=== PATIENT | female | born 1995 | race Caucasian/White ===

== ENCOUNTER 2021-08-13 14:23 | Emergency (ER) | payer SELFPAY ==
--- OUTSIDE RECORDS SUMMARY | 2021-08-13 14:27 | XMS REPORT | Continuity of Care Document ---
:1995 Author Organization [facility] t Address [address] [place] [address] Care Team Providers Name Role Phone PCP, DOES NOT HAVE A Primary Care Physician Unavailable JULIO MOREAU Attending Clinician Unavailable Julio Moreau MD Attending Clinician Doctor Unassigned, Name Attending Clinician Unavailable NANCY Attending Clinician Unavailable Chandler Attending Clinician Unavailable NANCY Admitting Clinician Unavailable Chandler Admitting Clinician Unavailable Payers Payer Name Policy Type Policy Number Effective Date Expiration Date [facility] [id number] 2018 CHOICE (MEDICAID 00:00:00 [place]PLAC[place] - [place] [id number] 2012 (PPO) 00:00:00 Problems Condition Condition Condition Status Onset Resolution Last Treating Co mments Source Name Details Category Date Date Treatment Clinician Date Encounter Encounter Disease Active Uni vers for for 5-05 ity of initial initial 00:00: [place] management management 00 Me dical of of Branch nuvaring nuvaring Obesity Obesity Disease Active 2018-02 Univers (BMI (BMI 1-12 ity of 30-39.9) 30-39.9) 00:00: [place] [address] Medical Branch Allergies, Adverse Reactions, Alerts Allergy Allergy Status Severity Reaction(s) Onset Inactive Treating Comm ents Source Name Type Date Date Clinician NO KNOWN Drug Active Univers ALLERGIE Class ity of [facility] Social History Social Habit Start Date Stop Date Quantity Comments Source Exposure to 2021-06-10 2021-06-20 Not sure University of SARS-CoV-2 00:00:00 09:13:00 [place] [facility] (event) Branch Alcohol intake 2021-06-20 2021-06-20 Current drinker of Un iversity of 00:00:00 00:00:00 alcohol (finding) [facility] edical Branch History SDOH 2020-03-19 2020-03-19 2 University o f Alcohol Frequency 00:00:00 00:00:00 [facility] edical Branch History [facility] 2020-03-19 2020-03-19 1 University o f Alcohol Std 00:00:00 00:00:00 [place] [facility] Drinks Branch History [facility] 2020-03-19 2020-03-19 1 University o f Alcohol Binge 00:00:00 00:00:00 [facility] al Branch Alcohol Comment 2019-09-05 2019-09-05 occasionally Univers ity of 00:00:00 00:00:00 [facility] Tobacco use and 2018-07-08 2018-07-08 Former user Universi ty of exposure 00:00:00 00:00:00 [facility] Tobacco Comment 2018-07-08 2018-07-08 stress smoker only U niversity of 00:00:00 00:00:00 [facility] Sex Ass[birth year] At [birth year] Universit y of 00:00:00 00:00:00 [facility] Smoking Status Start Date Stop Date Source Former smoker 2018-07-08 00:00:00 2018-07-08 00:00:00 Universi of [facility] Medications Ordered Filled Start Stop Current Ordering Indication Dosage Frequency Signature Comments Components Source Medication Medication Date Date Medication? Clinician (SIG) Name Name VINCE Yes [id number] 1{each} Insert 1 Univers 0.12-0.015 5-05 Each into ity of mg/24 hr 00:00: vagina vaginal 00 once every Medica l insert month. Branch Insert vaginally and leave in place for 3 consecutiv e weeks, then remove for 1 week. VINCE Yes [id number] 1{each} Insert 1 Univers 0.12-0.015 5-05 Each into ity of mg/24 hr 00:00: vagina vaginal 00 once every Medica l insert month. Branch Insert vaginally and leave in place for 3 consecutiv e weeks, then remove for 1 week. NUVARING Yes [id number] 1{each} Insert 1 Univers 0.12-0.015 5-05 Each into ity of mg/24 hr 00:00: vagina [place] vaginal 00 once every Medica l insert month. Branch Insert vaginally and leave in place for 3 consecutiv e weeks, then remove for 1 week. NUVARING Yes [id number] 1{each} Insert 1 Univers 0.12-0.015 5-05 Each into ity of mg/24 hr 00:00: vagina [place] vaginal 00 once every Medica l insert month. Branch Insert vaginally and leave in place for 3 consecutiv e weeks, then remove for 1 week. Immunizations Ordered Immunization Filled Immunization Date Status Commen ts Source Name Name Influenza Virus 2018-12-03 Completed Universit y of Vaccine Quad .5 mL IM 00:00:00 [place] [facility] 6+ MO Branch TDAP (ADACEL) VACCINE 2018-12-03 Completed Uni versity of 00:00:00 [facility] Influenza Virus 2018-12-03 Completed Universit y of Vaccine Quad .5 mL IM 00:00:00 [place] [facility] 6+ MO Branch TDAP (ADACEL) VACCINE 2018-12-03 Completed Uni versity of 00:00:00 [facility] Influenza Virus 2018-12-03 Completed Universit y of Vaccine Quad .5 mL IM 00:00:00 [place] [facility] 6+ MO Branch TDAP (ADACEL) VACCINE 2018-12-03 Completed Uni versity of 00:00:00 [facility] Influenza Virus 2018-12-03 Completed Universit y of Vaccine Quad .5 mL IM 00:00:00 [place] [facility] 6+ MO Branch TDAP (ADACEL) VACCINE 2018-12-03 Completed Uni versity of 00:00:00 [facility] Meningococcal 2011-12-15 Completed University of Polysaccharide 00:00:00 [place] Medi sedrick (groups A, C, Y and Branc h W-135) conjugate vaccine (MCV4P) TDAP 2011-12-15 Completed University of 00:00:00 [facility] Varicella 2011-12-15 Completed University of (varivax)(chicken 00:00:00 [place] M edical pox) [place] Meningococcal 2011-12-15 Completed University of Polysaccharide 00:00:00 [place] Medi sedrick (groups A, C, Y and Branc h W-135) conjugate vaccine (MCV4P) TDAP 2011-12-15 Completed University of 00:00:00 [facility] Varicella 2011-12-15 Completed University of (varivax)(chicken 00:00:00 [place] M edical pox) Branch Meningococcal 2011-12-15 Completed University of Polysaccharide 00:00:00 [place] Medi sedrick (groups A, C, Y and Branc h W-135) conjugate vaccine (MCV4P) TDAP 2011-12-15 Completed University of 00:00:00 [facility] Varicella 2011-12-15 Completed University of (varivax)(chicken 00:00:00 [place] M edical pox) Branch Meningococcal 2011-12-15 Completed University of Polysaccharide 00:00:00 [place] Medi sedrick (groups A, C, Y and Branc h W-135) conjugate vaccine (MCV4P) TDAP 2011-12-15 Completed University of 00:00:00 [facility] Varicella 2011-12-15 Completed University of (varivax)(chicken 00:00:00 [place] [facility] edical pox) Branch DTAP 2002-12-28 Completed University of 00:00:00 [facility] MMR 2002-12-28 Completed University of 00:00:00 [facility] Polio (IPV/OPV) 2002-12-28 Completed Universit y of 00:00:00 [facility] DTAP 2002-12-28 Completed University of 00:00:00 [facility] MMR 2002-12-28 Completed University of 00:00:00 [facility] Polio (IPV/OPV) 2002-12-28 Completed Universit y of 00:00:00 [facility] DTAP 2002-12-28 Completed University of 00:00:00 [facility] MMR 2002-12-28 Completed University of 00:00:00 [facility] Polio (IPV/OPV) 2002-12-28 Completed Universit y of 00:00:00 [facility] DTAP 2002-12-28 Completed University of 00:00:00 [facility] MMR 2002-12-28 Completed University of 00:00:00 [facility] Polio (IPV/OPV) 2002-12-28 Completed Universit y of 00:00:00 [facility] DTAP 2000-01-06 Completed University of 00:00:00 [facility] Polio (IPV/OPV) 2000-01-06 Completed Universit y of 00:00:00 [facility] DTAP 2000-01-06 Completed University of 00:00:00 [facility] Polio (IPV/OPV) 2000-01-06 Completed Universit y of 00:00:00 [facility] DTAP 2000-01-06 Completed University of 00:00:00 [facility] Polio (IPV/OPV) 2000-01-06 Completed Universit y of 00:00:00 [facility] DTAP 2000-01-06 Completed University of 00:00:00 [facility] Polio (IPV/OPV) 2000-01-06 Completed Universit y of 00:00:00 [facility] Varicella 1999-03-12 Completed University of (varivax)(chicken 00:00:00 [place] [facility]ical pox) Branch DTAP 1999-03-12 Completed University of 00:00:00 [facility] HIB 3 Dose Schedule 1999-03-12 Completed Unive rsity of 00:00:00 [facility] MMR 1999-03-12 Completed University of 00:00:00 [facility] Polio (IPV/OPV) 1999-03-12 Completed Universit y of 00:00:00 [facility] Varicella 1999-03-12 Completed University of (varivax)(chicken 00:00:00 [place] [facility] pox) Branch DTAP 1999-03-12 Completed University of 00:00:00 [facility] HIB 3 Dose Schedule 1999-03-12 Completed Unive rsity of 00:00:00 [facility] MMR 1999-03-12 Completed University of 00:00:00 [facility] Polio (IPV/OPV) 1999-03-12 Completed Universit y of 00:00:00 [facility] Varicella 1999-03-12 Completed University of (varivax)(chicken 00:00:00 [place] [facility] pox) Branch DTAP 1999-03-12 Completed University of 00:00:00 [facility] HIB 3 Dose Schedule 1999-03-12 Completed Unive rsity of 00:00:00 [facility] MMR 1999-03-12 Completed University of 00:00:00 [facility] Polio (IPV/OPV) 1999-03-12 Completed Universit y of 00:00:00 [facility] Varicella 1999-03-12 Completed University of (varivax)(chicken 00:00:00 [place] M edical pox) Branch DTAP 1999-03-12 Completed University of 00:00:00 [facility] HIB 3 Dose Schedule 1999-03-12 Completed Unive rsity of 00:00:00 [facility] MMR 1999-03-12 Completed University of 00:00:00 [facility] Polio (IPV/OPV) 1999-03-12 Completed Universit y of 00:00:00 [facility] HEPLISAV HEP B, ADULT 1999-01-30 Completed Uni versity of 2 DOSE, IM 00:00:00 [facility] HEPLISAV HEP B, ADULT 1999-01-30 Completed Uni versity of 2 DOSE, IM 00:00:00 [facility] HEPLISAV HEP B, ADULT 1999-01-30 Completed Uni versity of 2 DOSE, IM 00:00:00 [facility] HEPLISAV HEP B, ADULT 1999-01-30 Completed Uni versity of 2 DOSE, IM 00:00:00 [facility] DTAP 1998-03-09 Completed University of 00:00:00 [facility] Polio (IPV/OPV) 1998-03-09 Completed [facility] 00:00:00 [facility] Polio (IPV/OPV) 1998-03-09 Completed [facility] University of 00:00:00 [facility] Polio (IPV/OPV) 1998-03-09 Completed [facility] University of 00:00:00 [facility] Polio (IPV/OPV) 1998-03-09 Completed Universit y of 00:00:00 [facility] HEPLISAV HEP B, ADULT 1995 Completed Uni versity of 2 DOSE, IM 00:00:00 [facility] HEPLISAV HEP B, ADULT 1995 Completed Uni versity of 2 DOSE, IM 00:00:00 [facility] HEPLISAV HEP B, ADULT 1995 Completed Uni versity of 2 DOSE, IM 00:00:00 [facility] HEPLISAV HEP B, ADULT 1995 Completed Uni versity of 2 DOSE, IM 00:00:00 [facility] Vital Signs Vital Name Observation Time Observation Value Comments Source Systolic blood 2021-06-20 14:29:00 107 mm[Hg] Univer sity [facility] Diastolic blood 2021-06-20 14:29:00 67 [facility]Hg[facility] 2021-06-20 14:29:00 70 /min [facility] Body temperature 2021-06-20 14:29:00 [facility] height 2021-06-20 14:29:00 160 cm [facility] Body weight 2021-06-20 14:29:00 81.647 kg [facility] BMI 2021-06-20 14:29:00 31.89 kg/m2 [facility] Procedures Procedure Date / Time Performing Clinician Source Performed CONSENT FOR 2021-06-20 05:01:00 Doctor Unassigned, No [facility] CONTRACEPTION Name [facility] POCT TEST 2021-06-20 00:00:00 Denys Moreau [facility] POCT URINALYSIS W/O 2021-06-20 00:00:00 Denys Moreau [facility] SPECIFIC [facility] Encounters Start End Encounter Admission Attending Care Care Encounter Source Date/Time Date/Time Type Type Clinicians Facility Department ID 2021-07-25 2021-07-25 Outpatient R DENYS MOREAU NVJOSÉ [facility] [id number] [facility] 10:30:00 10:30:00 ity [facility] 2021-06-21 2021-06-21 Telephone Denys Moreau NVJOSÉ [id number] Univers 00:00:00 00:00:00 Julio KAUR [id number] i ty of [place] [id number] Giovanna JAMES [id number] [address] 2021-06-20 2021-06-20 Office Denys Moreau NVJOSÉ [id number] Univers 09:00:00 09:54:46 Visit Julio KAUR [id number] i ty of [id number] [place] PROF[place] [id number] Md dical [place] [address] Branch [facility] 2021-06-20 2021-06-20 Outpatient Mitch DENYS MOREAU [facility] [id number] Univers 09:00:00 09:54:46 ity of [facility] 2021-06-20 2021-06-20 Orders Doctor JIM [id number] Univers 00:00:00 00:00:00 Only Unassigned, DAYNE [id number] ity of [place] [facility] [id number] [place] as [id number] [address] 2021-06-10 2021-06-10 Outpatient ZEVFIDENCIOMichelle MEDINA [facility] [address] [place] 03:08:00 03:08:00 [facility] 2020-01-04 2020-01-04 Outpatient Layton_Pris [facility] [address] [place] 02:44:00 02:44:00 valarie [facility]8 [facility] Results Test Description Test Time Test Comments Results Result Comments Source POCT TEST 2021-06-20 15:11:00 Test Item Value Reference Range Interpretation Comme nts POCT PREG (test code = 1605) Negative On board controls acceptable with C Line (test code = 3574) Yes POCT PREG LOT # (test code = 3575) POCT PREG TEST DATE (test code = 3576) [id number] 15:11:00 Test Item Value Reference Range Interpretation Comments POCT PREG (test code = 1605) Negative On board controls acceptable with C Yes Line (test code = 3574) POCT PREG LOT # (test code = 3575) POCT PREG TEST DATE (test code = 3576) [facility] URINALYSIS W/O SPECIFIC [id number] 14:38:00 Test Item Value Reference Range Interpretation Comments POCT PH U (test code = 3254) 6 mg/dl 5-8 POCT U LEUK EST (test code = + Negative - Negative 3263) POCT U NIT (test code = 3262) Negative Negative - Negative POCT U PROT (test code = 3259) Negative Negative - Negative POCT U GLU (test code = 3256) Negative Negative - Negative POCT U KETONE (test code = 3258) Negative Negative - Negative POCT U BLD (test code = 3257) Trace Negative - Negative [facility] W/O SPECIFIC [id number] 14:38:00 Test Item Value Reference Range Interpretation Comments POCT PH U (test code = 3254) 6 mg/dl 5-8 POCT U LEUK EST (test code = + Negative - Negative 3263) POCT U NIT (test code = 3262) Negative Negative - Negative POCT U PROT (test code = 3259) Negative Negative - Negative POCT U GLU (test code = 3256) Negative Negative - Negative POCT U KETONE (test code = 3258) Negative Negative - Negative POCT U BLD (test code = 3257) Trace Negative - Negative [facility]
--- NOTE | 2021-08-13 16:32 | EDPHYS ---
Physician Documentation [facility] Name: Leora Watt Age: 25 yrs Sex: Female : 1995 Arrival Date: 08/13/2021 Time: 14:47 Bed 6 Private MD: ED Physician David Flores HPI: 08/13 15:25 This 25 yrs old Female presents to ER via Ambulatory with complaints of Cough, Sore rn Throat, Congestion. 15:25 The patient or guardian reports cough, flu symptoms, low-grade fever, myalgias. Onset: rn The symptoms/episode began/occurred 4 day(s) ago. Severity of symptoms: At their worst the symptoms were mild, in the emergency department the symptoms are unchanged. Modifying factors: The symptoms are alleviated by nothing, the symptoms are aggravated by nothing. Associated signs and symptoms: Pertinent positives: fever, rhinorrhea, Pertinent negatives: chest pain. The patient has not experienced similar symptoms in the past. The patient has not recently seen a physician. Pt reports cough/congestion/sore throat for 3-4 days, + subjective fever, has taken 2 days off from work. No sob. + nausea and vomiting. No diarrhea. No sick contacts. . Historical: - Allergies: 14:57 No Known Allergies; ss - Home Meds: 14:57 None [Active]; ss - PMHx: 14:57 None; ss - PSHx: 14:57 Tonsillectomy; ss - Social history:: Smoking status: Patient denies any tobacco usage or history of. Smoking status: . - Family history:: not pertinent. - Hospitalizations: : No recent hospitalization is reported. ROS: 15:25 Constitutional: + subjective fever and chills Eyes: Negative for injury, pain, redness, rn and discharge, ENT: + sore throat and congestion Neck: Negative for injury, pain, and swelling, Cardiovascular: Negative for chest pain, palpitations, and edema, Respiratory: + cough, neg for sob. Abdomen/GI: + nausea and vomiting. Neg for abd pain Back: Negative for injury and pain, MS/Extremity: Negative for injury and deformity, Skin: Negative for injury, rash, and discoloration, Neuro: Negative for numbness, tingling, and seizure. Exam: 15:25 Constitutional: This is a well developed, well nourished patient who is awake, alert, rn and in no acute distress. Ambulatory to room without difficulty or assistance. Head/Face: Normocephalic, atraumatic. Eyes: Periorbital areas with no swelling, redness, or edema. ENT: No stridor Neck: Nontender cervical LAD Cardiovascular: Regular rate and rhythm. No pulse deficits. Respiratory: No increased work of breathing, no retractions or nasal flaring. Abdomen/GI: Soft, non-tender Skin: Warm, dry MS/ Extremity: Pulses equal, no cyanosis. Neuro: Awake and alert, GCS 15 Vital Signs: 14:56 BP 134 / 85; Pulse 97; Resp 15; Temp 98.3(TE); Pulse Ox 100% on R/A; Height 5 ft. 3 in. ss (160.02 cm); Pain 7/10; 16:03 BP 122 / 79; Pulse 85; Resp 16; Pulse Ox 100% on R/A; jb4 MDM: 14:49 Patient medically screened. rn 16:30 Differential Diagnosis: Bronchitis Influenza Upper Respiratory Infection Sinusitis rn Pharyngitis Viral Syndrome. Data reviewed: vital signs, nurses notes, lab test result(s), and as a result, I will discharge patient. Counseling: I had a detailed discussion with the patient and/or guardian regarding: the historical points, exam findings, and any diagnostic results supporting the discharge/admit diagnosis, lab results, the need for outpatient follow up, to return to the emergency department if symptoms worsen or persist or if there are any questions or concerns that arise at home. Special discussion: I discussed with the patient/guardian in detail that at this point there is no indication for admission to the hospital. It is understood, however, that if the symptoms persist or worsen the patient needs to return immediately for re-evaluation. 08/13 14:54 Order name: Strep; Complete Time: 16:30 ss 08/13 14:54 Order name: SARS-COV-2 RT PCR (Document "Date of Onset" if Symptomatic); Complete Time: ss 16:30 08/13 14:54 Order name: Flu; Complete Time: 16:30 ss 08/13 15:29 Order name: Throat Culture EDMS Administered Medications: No medications were administered Disposition Summary: 08/13/21 16:31 Discharge Ordered Location: Home rn Problem: new rn Symptoms: are unchanged rn Condition: Stable rn Diagnosis - Acute pharyngitis, unspecified rn Followup: rn - With: Private Physician - When: As needed - Reason: Recheck today's complaints, Re-evaluation by your physician Discharge Instructions: - Discharge Summary Sheet rn - Pharyngitis rn Forms: - Medication Reconciliation Form rn - Thank You Letter rn - Antibiotic international travel consultant - Prescription Opioid Use rn Prescriptions: - Zithromax Z-Danny 250 mg Oral Tablet - take 1 tablet by ORAL route as directed for 5 days Day 1 - take two (2) tablets rn one time. Day 2, 3, 4 , 5 take one (1) tablet once daily.; 6 tablet; Refills: 0, Product Selection Permitted Signatures: Dispatcher [employer] EDDavid Gardner MD MD rn Smirch, Shelby, RN RN ss
--- NOTE | 2021-08-13 16:32 | ER ---
Nurse's Notes [facility] Name: Leora Watt Age: 25 yrs Sex: Female : 1995 Arrival Date: 08/13/2021 Time: 14:47 Bed 6 Private MD: Diagnosis: Acute pharyngitis, unspecified Presentation: 08/13 14:56 Chief complaint: Patient states: cough, sore throat and runny nose that began 3-4 days ss ago. Coronavirus screen: Client presents with at least one sign or symptom that may indicate coronavirus-19. Ebola Screen: Patient denies exposure to infectious person. Patient denies travel to an Ebola-affected area in the 21 days before illness onset. Initial Sepsis Screen: Does the patient meet any 2 criteria? No. Patient's initial sepsis screen is negative. Does the patient have a suspected source of infection? No. Patient's initial sepsis screen is negative. Risk Assessment: Do you want to hurt yourself or someone else? Patient reports no desire to harm self or others. Onset of symptoms was August 09, 2021. 14:56 Method Of Arrival: Ambulatory ss 14:56 Acuity: MAYI 4 ss Triage Assessment: 15:52 General: Appears in no apparent distress. comfortable, Behavior is calm, cooperative, bp appropriate for age. Pain: Complains of pain in neck. EENT: Reports nasal discharge pain when swallowing. Neuro: No deficits noted. Cardiovascular: No deficits noted. Respiratory: No deficits noted. GI: No signs and/or symptoms were reported involving the gastrointestinal system. : No signs and/or symptoms were reported regarding the genitourinary system. Derm: No deficits noted. Musculoskeletal: No deficits noted. Historical: - Allergies: 14:57 No Known Allergies; ss - Home Meds: 14:57 None [Active]; ss - PMHx: 14:57 None; ss - PSHx: 14:57 Tonsillectomy; ss - Social history:: Smoking status: Patient denies any tobacco usage or history of. Smoking status: . - Family history:: not pertinent. - Hospitalizations: : No recent hospitalization is reported. Screenin:58 Abuse screen: Denies threats or abuse. Denies injuries from another. Nutritional ss screening: No deficits noted. Tuberculosis screening: Never had TB. Fall Risk None identified. Assessment: 14:58 General: Appears in no apparent distress. comfortable, Behavior is calm, cooperative, ss Reports feeling ill for > 3 days, Denies fever. Pain: Complains of pain in throat Pain currently is 7 out of 10 on a pain scale. Neuro: Summers Agitation-Sedation Scale (RASS): 0 - Alert and Calm Level of Consciousness is awake, alert, obeys commands, Oriented to person, place, time, situation. Respiratory: Airway is patent Respiratory effort is even, unlabored, Respiratory pattern is regular, symmetrical. GI: Patient currently denies diarrhea, nausea, vomiting. EENT: Nares Oral mucosa is moist. Throat is clear. Derm: Skin is intact, is healthy with good turgor, Skin is dry, Skin is pink, warm \T\ dry. normal. 16:03 Reassessment: Patient appears in no apparent distress at this time. Patient and/or jb4 family updated on plan of care and expected duration. Pain level reassessed. Patient is alert, oriented x 3, equal unlabored respirations, skin warm/dry/pink. 16:41 Reassessment: Patient appears in no apparent distress at this time. Patient and/or jb4 family updated on plan of care and expected duration. Pain level reassessed. Patient is alert, oriented x 3, equal unlabored respirations, skin warm/dry/pink. Vital Signs: 14:56 BP 134 / 85; Pulse 97; Resp 15; Temp 98.3(TE); Pulse Ox 100% on R/A; Height 5 ft. 3 in. ss (160.02 cm); Pain 7/10; 16:03 BP 122 / 79; Pulse 85; Resp 16; Pulse Ox 100% on R/A; jb4 ED Course: 14:47 Patient arrived in ED. mr 14:49 David Flores MD is Attending Physician. rn 14:57 Triage completed. ss 14:57 Arm band placed on right wrist. ss 14:58 Patient has correct armband on for positive identification. Bed in low position. Call ss light in reach. 15:51 Julio Greenfield, QUINN is Primary Nurse. bp 16:41 No provider procedures requiring assistance completed. Patient did not have IV access jb4 during this emergency room visit. Administered Medications: No medications were administered Medication: 14:58 VIS not applicable for this client. ss Outcome: 16:31 Discharge ordered by . rn 16:41 Discharged to home ambulatory. jb4 16:41 Condition: stable 16:41 Discharge instructions given to patient, Instructed on discharge instructions, follow up and referral plans. medication usage, Demonstrated understanding of instructions, follow-up care, medications, Prescriptions given X 1. 16:41 Patient left the ED. jb4 Signatures: Irlanda Higgins mr David Flores MD MD rn Smirch, Shelby, RN RN ss Bryson, James, RN RN jb Julio Greenfield RN RN bp
[2021-08-13 17:19] VITALS: TEMP 98.3; O2SAT 100
[2021-08-13 17:20] VITALS: BP 122/79
== END 2021-08-13 16:41 | disposition home or self-care (01) ==
LOC: ER 14:23
DX: J02.9 Acute pharyngitis, unspecified (principal); R05.9 Cough, unspecified; Z20.822 Contact with and (suspected) exposure to COVID-19
CPT/HCPCS: 87070; 87081; 87804; U0003

== ENCOUNTER 2023-01-27 16:22 | Emergency (ER) | payer SELFPAY ==
--- OUTSIDE RECORDS SUMMARY | 2023-01-27 16:27 | XMS REPORT | Continuity of Care Document ---
Author Name Unknown Address [address] [facility] [place] [address] [facility] thconnect Address [address] [facility] [address] [place] [address] Care Team Providers Care Linotyper Name Role Phone Akintuan WHChelsie ORTIZ Primary Care Physicia n CHELSIE ANDERSON Attending Clinician Unavail able AkinChelsie Brown Attending Clinician + Doctor Unassigned, [place] Attending Clinician U maria ines Moreau MD, Denys Moscoso Attending Clinician [phone] REGLA CARRERO Attending Clinician Unavailable HAMZAH SALDIVAR Attending Clinician Unavailab LATIA Grider Attending Clinician Unavailable DENYS MOREAU Attending Clinician Unavailable NANCY Attending Clinician Unavailable Gonzalez DELGADOSWJoseline Attending Clinician UnaLatia Coley PA-C Attending Clinician [phone] Andre York DO Attending Clinician [phone] Natasha Melissa Attending Clinician [phone] Provider, [facility] Attending Clinician Un available NATASHA SHIELDS Attending Clinician Unavailable MIKEY MORALES Attending Clinician Unavailable Chandler Attending Clinician Unavailable Katy AUGUST, Uri Attending Clinician + [phone] Virgil AUGUST, Melany Attending Clinician [phone] NANCY Admitting Clinician Unavailable Chandler Admitting Clinician Unavailable Payers Payer Name Policy Type Policy Number Effective Date Expirati on Date Source MEDICAID PENDING PENDING 2023 00:00:00 [id number] 2021 00:00:00 [facility] (MEDICAID REPLACEMENT - HMO) [id number] 2018 00:00:00 [place] [id number] 2012 00:00:00 [facility] MEDICAID [id number] 2018 00:00:00 Problems Condition Name Condition Details Condition Category Status Onset Date Resolution Date Last Treatment Date Treating Clinician Comments Source Supervisio n of high-risk Supervisio n of high-risk Disease Active 2022-02 00:00: 00 [facility] Multiparit y Multiparit y Disease Active 2022-02 00:00: 00 [facility] History of miscarriag e History of miscarriag e Disease Active 2022-02 00:00: 00 Overview: Formattin g of this note might be different from the original. X2 [facility] Pelvic pain in Pelvic pain in Disease Active 2022-02 00:00: 00 [facility] Well woman exam Well woman exam Disease Active 3-15 00:00: 00 [facility] Breast pain Breast pain Disease Active 3-15 00:00: 00 [facility] Other general counseling and advice for contracept cande management Other general counseling and advice for contracept cande management Disease Active 5-05 00:00: 00 [facility] Obesity (BMI 30-39.9) Obesity (BMI 30-39.9) Disease Active 2018-02 00:00: 00 [facility] Obesity in Obesity in Disease Active 2018-02 00:00: 00 [facility] Allergies, Adverse Reactions, Alerts Allergy Name Allergy Type Status Severity Reaction(s) Onset Date Inactive Date Treating Clinician Comments Source NO KNOWN ALLERGIE S Drug Class Active [facility] Social History Social Habit Start Date Stop Date Quantity Comments Source ASSERTION 2022-12-21 00:00:00 [facility] History of tobacco use Current smoker [facility] Sexual orientation [facility] Tobacco use and exposure 2023-01-27 00:00:00 2023-01-27 00:00:00 Former smokeless tobacco user [facility] Alcohol intake 2023-01-27 00:00:00 2023-01-27 00:00:00 Current drinker of alcohol (finding) [facility] Exposure to SARS-CoV-2 (event) 2022-04-28 00:00:00 2022-05-08 14:01:00 Not sure [facility] History of Social function 2022-04-30 00:00:00 2022-04-30 00:00:00 [facility] History SDOH Alcohol Frequency 2020-03-19 00:00:00 2020-03-19 00:00:00 2 [facility] History SDOH Alcohol Std Drinks 2020-03-19 00:00:00 2020-03-19 00:00:00 1 [facility] History SDOH Alcohol Binge 2020-03-19 00:00:00 2020-03-19 00:00:00 1 [facility] Alcohol Comment 2019-09-05 00:00:00 2019-09-05 00:00:00 occasionally [facility] Tobacco Comment 2018-07-08 00:00:00 2018-07-08 00:00:00 stress smoker only [facility] Sex Assigned At 1995 00:00:00 1995 00:00:00 [facility] Smoking Status Start Date Stop Date Source Ex-smoker 2023-01-27 00:00:00 2023-01-27 00:00:00 [facility] Medications Ordered Medication Name Filled Medication Name Start Date Stop Date Current Medication? Ordering Clinician Indication Dosage Frequency Signature (SIG) Comments Components Source mys83-kehg- folic acid 29 mg iron- 1 mg per tablet 2022-02 00:00: 00 Yes [id number] 1{tbl} Take 1 tablet by mouth in the morning. [facility] bqw04-iciw- folic acid 29 mg iron- 1 mg per tablet 2022-02- 00:00: 00 Yes [id number] 1{tbl} Take 1 tablet by mouth in the morning. [facility] myn18-hodt- folic acid 29 mg iron- 1 mg per tablet 2022-02 00:00: 00 Yes [id number] 1{tbl} Take 1 tablet by mouth in the morning. [facility] norgestimat e-ethinyl estradioL (ORTHO TRI-CYCLEN, 28,) 0.18/0.215/ 0.25 mg-35 mcg (28) tablet 08-08 00:00: 00 Yes [id number] 1{tbl} Take 1 tablet by mouth in the morning. [facility] norgestimat e-ethinyl estradioL (ORTHO TRI-CYCLEN, 28,) 0.18/0.215/ 0.25 mg-35 mcg (28) tablet 08-08 00:00: 00 Yes [id number] 1{tbl} Take 1 tablet by mouth in the morning. [facility] norgestimat e-ethinyl estradioL (ORTHO TRI-CYCLEN, 28,) 0.18/0.215/ 0.25 mg-35 mcg (28) tablet 08-08 00:00: 00 01-27 00:00 :00 No [id number] 1{tbl} Take 1 tablet by mouth in the morning. [facility] norgestimat e-ethinyl estradioL (ORTHO TRI-CYCLEN, 28,) 0.18/0.215/ 0.25 mg-35 mcg (28) tablet 08-08 00:00: 00 01-27 00:00 :00 No [id number] 1{tbl} Take 1 tablet by mouth in the morning. [facility] norgestimat e-ethinyl estradioL (ORTHO TRI-CYCLEN, 28,) 0.18/0.215/ 0.25 mg-35 mcg (28) tablet 08-08 00:00: 00 01-27 00:00 :00 No [id number] 1{tbl} Take 1 tablet by mouth in the morning. [facility] norgestimat e-ethinyl estradioL (ORTHO TRI-CYCLEN, 28,) 0.18/0.215/ 0.25 mg-35 mcg (28) tablet 05-08 00:00: 00 Yes [id number] 1{tbl} Take 1 tablet by mouth in the morning. [facility] norgestimat e-ethinyl estradioL (ORTHO TRI-CYCLEN, 28,) 0.18/0.215/ 0.25 mg-35 mcg (28) tablet 05-08 00:00: 00 Yes [id number] 1{tbl} Take 1 tablet by mouth in the morning. [facility] norgestimat e-ethinyl estradioL (ORTHO TRI-CYCLEN, 28,) 0.18/0.215/ 0.25 mg-35 mcg (28) tablet 05-08 00:00: 00 Yes [id number] 1{tbl} Take 1 tablet by mouth in the morning. [facility] norgestimat e-ethinyl estradioL (ORTHO TRI-CYCLEN, 28,) 0.18/0.215/ 0.25 mg-35 mcg (28) tablet 05-08 00:00: 00 08-08 00:00 :00 No [id number] 1{tbl} Take 1 tablet by mouth in the morning. [facility] norgestimat e-ethinyl estradioL (ORTHO TRI-CYCLEN, 28,) 0.18/0.215/ 0.25 mg-35 mcg (28) tablet 05-08 00:00: 00 08-08 00:00 :00 No [id number] 1{tbl} Take 1 tablet by mouth in the morning. [facility] No known medications 06-20 09:59: 38 No No known medication s [facility] NUVARING 0.12-0.015 mg/24 hr vaginal insert 06-20 00:00: 00 Yes [id number] 1{each} Insert 1 Each into vagina once every month. Insert vaginally and leave in place for 3 consecutiv e weeks, then remove for 1 week. [facility] ity [facility] NUVARING 0.12-0.015 mg/24 hr vaginal insert 2021-0 5-05 00:00: 00 Yes [id number] 1{each} Insert 1 Each into vagina once every month. Insert vaginally and leave in place for 3 consecutiv e weeks, then remove for 1 week. [facility] ity [facility] NUVARING 0.12-0.015 mg/24 hr vaginal insert 2021-0 5-05 00:00: 00 Yes [id number] 1{each} Insert 1 Each into vagina once every month. Insert vaginally and leave in place for 3 consecutiv e weeks, then remove for 1 week. [facility] ity [facility] NUVARING 0.12-0.015 mg/24 hr vaginal insert 2021-0 5-05 00:00: 00 Yes [id number] 1{each} Insert 1 Each into vagina once every month. Insert vaginally and leave in place for 3 consecutiv e weeks, then remove for 1 week. [facility] ity [facility] NUVARING 0.12-0.015 mg/24 hr vaginal insert 2021-0 5-05 00:00: 00 Yes [id number] 1{each} Insert 1 Each into vagina once every month. Insert vaginally and leave in place for 3 consecutiv e weeks, then remove for 1 week. [facility] ity [facility] NUVARING 0.12-0.015 mg/24 hr vaginal insert 2021-0 5-05 00:00: 00 Yes [id number] 1{each} Insert 1 Each into vagina once every month. Insert vaginally and leave in place for 3 consecutiv e weeks, then remove for 1 week. [facility] ity [facility] NUVARING 0.12-0.015 mg/24 hr vaginal insert 2021-0 5-05 00:00: 00 04-30 00:00 :00 No [id number] 1{each} Insert 1 Each into vagina once every month. Insert vaginally and leave in place for 3 consecutiv e weeks, then remove for 1 week. [facility] NUVARING 0.12-0.015 mg/24 hr vaginal insert 05 00:00: 00 04-30 00:00 :00 No [id number] 1{each} Insert 1 Each into vagina once every month. Insert vaginally and leave in place for 3 consecutiv e weeks, then remove for 1 week. [facility] Immunizations Ordered Immunization Name Filled Immunization Name Date Status Comments Source Influenza Virus Vaccine Quad .5 mL IM 6+ MO 2018-12-03 00:00:00 Completed [facility] TDAP (ADACEL) VACCINE 2018-12-03 00:00:00 Completed [facility] Influenza Virus Vaccine Quad .5 mL IM 6+ MO 2018-12-03 00:00:00 Completed [facility] TDAP (ADACEL) VACCINE 2018-12-03 00:00:00 Completed [facility] Influenza Virus Vaccine Quad .5 mL IM 6+ MO 2018-12-03 00:00:00 Completed [facility] TDAP (ADACEL) VACCINE 2018-12-03 00:00:00 Completed [facility] Influenza Virus Vaccine Quad .5 mL IM 6+ MO 2018-12-03 00:00:00 Completed [facility] TDAP (ADACEL) VACCINE 2018-12-03 00:00:00 Completed [facility] Influenza Virus Vaccine Quad .5 mL IM 6+ MO 2018-12-03 00:00:00 Completed [facility] TDAP (ADACEL) VACCINE 2018-12-03 00:00:00 Completed [facility] Influenza Virus Vaccine Quad .5 mL IM 6+ MO 2018-12-03 00:00:00 Completed [facility] TDAP (ADACEL) VACCINE 2018-12-03 00:00:00 Completed [facility] Influenza Virus Vaccine Quad .5 mL IM 6+ MO 2018-12-03 00:00:00 Completed [facility] TDAP (ADACEL) VACCINE 2018-12-03 00:00:00 Completed [facility] Influenza Virus Vaccine Quad .5 mL IM 6+ MO 2018-12-03 00:00:00 Completed [facility] TDAP (ADACEL) VACCINE 2018-12-03 00:00:00 Completed [facility] Influenza Virus Vaccine Quad .5 mL IM 6+ MO 2018-12-03 00:00:00 Completed [facility] TDAP (ADACEL) VACCINE 2018-12-03 00:00:00 Completed [facility] Influenza Virus Vaccine Quad .5 mL IM 6+ MO 2018-12-03 00:00:00 Completed [facility] TDAP (ADACEL) VACCINE 2018-12-03 00:00:00 Completed [facility] Influenza Virus Vaccine Quad .5 mL IM 6+ MO 2018-12-03 00:00:00 Completed [facility] TDAP (ADACEL) VACCINE 2018-12-03 00:00:00 Completed [facility] Influenza Virus Vaccine Quad .5 mL IM 6+ MO 2018-12-03 00:00:00 Completed [facility] TDAP (ADACEL) VACCINE 2018-12-03 00:00:00 Completed [facility] Influenza Virus Vaccine Quad .5 mL IM 6+ MO 2018-12-03 00:00:00 Completed [facility] TDAP (ADACEL) VACCINE 2018-12-03 00:00:00 Completed [facility] Influenza Virus Vaccine Quad .5 mL IM 6+ MO 2018-12-03 00:00:00 Completed [facility] TDAP (ADACEL) VACCINE 2018-12-03 00:00:00 Completed [facility] Influenza Virus Vaccine Quad .5 mL IM 6+ MO 2018-12-03 00:00:00 Completed [facility] TDAP (ADACEL) VACCINE 2018-12-03 00:00:00 Completed [facility] Meningococcal Polysaccharide (groups A, C, Y and W-135) conjugate vaccine (MCV4P) 2011-12-15 00:00:00 Completed [facility] TDAP 2011-12-15 00:00:00 Completed [facility] Varicella (varivax)(chicken pox) 2011-12-15 00:00:00 Completed [facility] Meningococcal Polysaccharide (groups A, C, Y and W-135) conjugate vaccine (MCV4P) 2011-12-15 00:00:00 Completed [facility] TDAP 2011-12-15 00:00:00 Completed [facility] Varicella (varivax)(chicken pox) 2011-12-15 00:00:00 Completed [facility] Meningococcal Polysaccharide (groups A, C, Y and W-135) conjugate vaccine (MCV4P) 2011-12-15 00:00:00 Completed [facility] TDAP 2011-12-15 00:00:00 Completed [facility] Varicella (varivax)(chicken pox) 2011-12-15 00:00:00 Completed [facility] Meningococcal Polysaccharide (groups A, C, Y and W-135) conjugate vaccine (MCV4P) 2011-12-15 00:00:00 Completed [facility] TDAP 2011-12-15 00:00:00 Completed [facility] Varicella (varivax)(chicken pox) 2011-12-15 00:00:00 Completed [facility] Meningococcal Polysaccharide (groups A, C, Y and W-135) conjugate vaccine (MCV4P) 2011-12-15 00:00:00 Completed [facility] TDAP 2011-12-15 00:00:00 Completed [facility] Varicella (varivax)(chicken pox) 2011-12-15 00:00:00 Completed [facility] Meningococcal Polysaccharide (groups A, C, Y and W-135) conjugate vaccine (MCV4P) 2011-12-15 00:00:00 Completed [facility] TDAP 2011-12-15 00:00:00 Completed [facility] Varicella (varivax)(chicken pox) 2011-12-15 00:00:00 Completed [facility] Meningococcal Polysaccharide (groups A, C, Y and W-135) conjugate vaccine (MCV4P) 2011-12-15 00:00:00 Completed [facility] TDAP 2011-12-15 00:00:00 Completed [facility] Varicella (varivax)(chicken pox) 2011-12-15 00:00:00 Completed [facility] Meningococcal Polysaccharide (groups A, C, Y and W-135) conjugate vaccine (MCV4P) 2011-12-15 00:00:00 Completed [facility] TDAP 2011-12-15 00:00:00 Completed [facility] Varicella (varivax)(chicken pox) 2011-12-15 00:00:00 Completed [facility] Flu Trivalent 2011-12-15 00:00:00 Completed [facility] Meningococcal Polysaccharide (groups A, C, Y and W-135) conjugate vaccine (MCV4P) 2011-12-15 00:00:00 Completed [facility] TDAP 2011-12-15 00:00:00 Completed [facility] Varicella (varivax)(chicken pox) 2011-12-15 00:00:00 Completed [facility] Flu Trivalent 2011-12-15 00:00:00 Completed [facility] Meningococcal Polysaccharide (groups A, C, Y and W-135) conjugate vaccine (MCV4P) 2011-12-15 00:00:00 Completed [facility] TDAP 2011-12-15 00:00:00 Completed [facility] Varicella (varivax)(chicken pox) 2011-12-15 00:00:00 Completed [facility] Flu Trivalent 2011-12-15 00:00:00 Completed [facility] Meningococcal Polysaccharide (groups A, C, Y and W-135) conjugate vaccine (MCV4P) 2011-12-15 00:00:00 Completed [facility] TDAP 2011-12-15 00:00:00 Completed [facility] Varicella (varivax)(chicken pox) 2011-12-15 00:00:00 Completed [facility] Flu Trivalent 2011-12-15 00:00:00 Completed [facility] Meningococcal Polysaccharide (groups A, C, Y and W-135) conjugate vaccine (MCV4P) 2011-12-15 00:00:00 Completed [facility] TDAP 2011-12-15 00:00:00 Completed [facility] Varicella (varivax)(chicken pox) 2011-12-15 00:00:00 Completed [facility] Flu Trivalent 2011-12-15 00:00:00 Completed [facility] Meningococcal Polysaccharide (groups A, C, Y and W-135) conjugate vaccine (MCV4P) 2011-12-15 00:00:00 Completed [facility] TDAP 2011-12-15 00:00:00 Completed [facility] Varicella (varivax)(chicken pox) 2011-12-15 00:00:00 Completed [facility] Flu Trivalent 2011-12-15 00:00:00 Completed [facility] Meningococcal Polysaccharide (groups A, C, Y and W-135) conjugate vaccine (MCV4P) 2011-12-15 00:00:00 Completed [facility] TDAP 2011-12-15 00:00:00 Completed [facility] Varicella (varivax)(chicken pox) 2011-12-15 00:00:00 Completed [facility] Flu Trivalent 2011-12-15 00:00:00 Completed [facility] Meningococcal Polysaccharide (groups A, C, Y and W-135) conjugate vaccine (MCV4P) 2011-12-15 00:00:00 Completed [facility] TDAP 2011-12-15 00:00:00 Completed [facility] Varicella (varivax)(chicken pox) 2011-12-15 00:00:00 Completed [facility] Flu Trivalent 2011-12-15 00:00:00 Completed [facility] DTAP 2002-12-28 00:00:00 Completed [facility] MMR 2002-12-28 00:00:00 Completed [facility] Polio (IPV/OPV) 2002-12-28 00:00:00 Completed [facility] DTAP 2002-12-28 00:00:00 Completed [facility] MMR 2002-12-28 00:00:00 Completed [facility] Polio (IPV/OPV) 2002-12-28 00:00:00 Completed [facility] DTAP 2002-12-28 00:00:00 Completed [facility] MMR 2002-12-28 00:00:00 Completed [facility] Polio (IPV/OPV) 2002-12-28 00:00:00 Completed [facility] DTAP 2002-12-28 00:00:00 Completed [facility] MMR 2002-12-28 00:00:00 Completed [facility] Polio (IPV/OPV) 2002-12-28 00:00:00 Completed [facility] DTAP 2002-12-28 00:00:00 Completed [facility] MMR 2002-12-28 00:00:00 Completed [facility] Polio (IPV/OPV) 2002-12-28 00:00:00 Completed [facility] DTAP 2002-12-28 00:00:00 Completed [facility] MMR 2002-12-28 00:00:00 Completed [facility] Polio (IPV/OPV) 2002-12-28 00:00:00 Completed [facility] DTAP 2002-12-28 00:00:00 Completed [facility] MMR 2002-12-28 00:00:00 Completed [facility] Polio (IPV/OPV) 2002-12-28 00:00:00 Completed [facility] DTAP 2002-12-28 00:00:00 Completed [facility] MMR 2002-12-28 00:00:00 Completed [facility] Polio (IPV/OPV) 2002-12-28 00:00:00 Completed [facility] DTaP, Unspecified Formulation 2002-12-28 00:00:00 Completed [facility] IPV 2002-12-28 00:00:00 Completed [facility] DTAP 2002-12-28 00:00:00 Completed [facility] MMR 2002-12-28 00:00:00 Completed [facility] Polio (IPV/OPV) 2002-12-28 00:00:00 Completed [facility] DTaP, Unspecified Formulation 2002-12-28 00:00:00 Completed [facility] IPV 2002-12-28 00:00:00 Completed [facility] DTAP 2002-12-28 00:00:00 Completed [facility] MMR 2002-12-28 00:00:00 Completed [facility] Polio (IPV/OPV) 2002-12-28 00:00:00 Completed [facility] DTaP, Unspecified Formulation 2002-12-28 00:00:00 Completed [facility] IPV 2002-12-28 00:00:00 Completed [facility] DTAP 2002-12-28 00:00:00 Completed [facility] MMR 2002-12-28 00:00:00 Completed [facility] Polio (IPV/OPV) 2002-12-28 00:00:00 Completed [facility] DTaP, Unspecified Formulation 2002-12-28 00:00:00 Completed [facility] IPV 2002-12-28 00:00:00 Completed [facility] DTAP 2002-12-28 00:00:00 Completed [facility] MMR 2002-12-28 00:00:00 Completed [facility] Polio (IPV/OPV) 2002-12-28 00:00:00 Completed [facility] DTaP, Unspecified Formulation 2002-12-28 00:00:00 Completed [facility] IPV 2002-12-28 00:00:00 Completed [facility] DTAP 2002-12-28 00:00:00 Completed [facility] MMR 2002-12-28 00:00:00 Completed [facility] Polio (IPV/OPV) 2002-12-28 00:00:00 Completed [facility] DTaP, Unspecified Formulation 2002-12-28 00:00:00 Completed [facility] IPV 2002-12-28 00:00:00 Completed [facility] DTAP 2002-12-28 00:00:00 Completed [facility] MMR 2002-12-28 00:00:00 Completed [facility] Polio (IPV/OPV) 2002-12-28 00:00:00 Completed [facility] DTaP, Unspecified Formulation 2002-12-28 00:00:00 Completed [facility] IPV 2002-12-28 00:00:00 Completed [facility] DTAP 2002-12-28 00:00:00 Completed [facility] MMR 2002-12-28 00:00:00 Completed [facility] Polio (IPV/OPV) 2002-12-28 00:00:00 Completed [facility] DTaP, Unspecified Formulation 2002-12-28 00:00:00 Completed [facility] IPV 2002-12-28 00:00:00 [facility] [facility] 2000-01-06 00:00:00 Completed [facility] Polio (IPV/OPV) 2000-01-06 00:00:00 Completed [facility] DTAP 2000-01-06 00:00:00 Completed [facility] Polio (IPV/OPV) 2000-01-06 00:00:00 Completed [facility] DTAP 2000-01-06 00:00:00 Completed [facility] Polio (IPV/OPV) 2000-01-06 00:00:00 Completed [facility] DTAP 2000-01-06 00:00:00 Completed [facility] Polio (IPV/OPV) 2000-01-06 00:00:00 Completed [facility] DTAP 2000-01-06 00:00:00 Completed [facility] Polio (IPV/OPV) 2000-01-06 00:00:00 Completed [facility] DTAP 2000-01-06 00:00:00 Completed [facility] Polio (IPV/OPV) 2000-01-06 00:00:00 Completed [facility] DTAP 2000-01-06 00:00:00 Completed [facility] Polio (IPV/OPV) 2000-01-06 00:00:00 Completed [facility] DTAP 2000-01-06 00:00:00 Completed [facility] Polio (IPV/OPV) 2000-01-06 00:00:00 Completed [facility] DTaP, Unspecified Formulation 2000-01-06 00:00:00 Completed [facility] IPV 2000-01-06 00:00:00 Completed [facility] DTAP 2000-01-06 00:00:00 Completed [facility] Polio (IPV/OPV) 2000-01-06 00:00:00 Completed [facility] DTaP, Unspecified Formulation 2000-01-06 00:00:00 Completed [facility] IPV 2000-01-06 00:00:00 Completed [facility] DTAP 2000-01-06 00:00:00 Completed [facility] Polio (IPV/OPV) 2000-01-06 00:00:00 Completed [facility] DTaP, Unspecified Formulation 2000-01-06 00:00:00 Completed [facility] IPV 2000-01-06 00:00:00 Completed [facility] DTAP 2000-01-06 00:00:00 Completed [facility] Polio (IPV/OPV) 2000-01-06 00:00:00 Completed [facility] DTaP, Unspecified Formulation 2000-01-06 00:00:00 Completed [facility] IPV 2000-01-06 00:00:00 Completed [facility] DTAP 2000-01-06 00:00:00 Completed [facility] Polio (IPV/OPV) 2000-01-06 00:00:00 Completed [facility] DTaP, Unspecified Formulation 2000-01-06 00:00:00 Completed [facility] IPV 2000-01-06 00:00:00 Completed [facility] DTAP 2000-01-06 00:00:00 Completed [facility] Polio (IPV/OPV) 2000-01-06 00:00:00 Completed [facility] DTaP, Unspecified Formulation 2000-01-06 00:00:00 Completed [facility] IPV 2000-01-06 00:00:00 Completed [facility] DTAP 2000-01-06 00:00:00 Completed [facility] Polio (IPV/OPV) 2000-01-06 00:00:00 Completed [facility] DTaP, Unspecified Formulation 2000-01-06 00:00:00 Completed [facility] IPV 2000-01-06 00:00:00 Completed [facility] DTAP 2000-01-06 00:00:00 Completed [facility] Polio (IPV/OPV) 2000-01-06 00:00:00 Completed [facility] DTaP, Unspecified Formulation 2000-01-06 00:00:00 Completed [facility] IPV 2000-01-06 00:00:00 Completed [facility] DTAP 1999-03-12 00:00:00 Completed [facility] HIB 3 Dose Schedule 1999-03-12 00:00:00 Completed [facility] MMR 1999-03-12 00:00:00 Completed [facility] Polio (IPV/OPV) 1999-03-12 00:00:00 Completed [facility] Varicella (varivax)(chicken pox) 1999-03-12 00:00:00 Completed [facility] DTAP 1999-03-12 00:00:00 Completed [facility] HIB 3 Dose Schedule 1999-03-12 00:00:00 Completed [facility] MMR 1999-03-12 00:00:00 Completed [facility] Polio (IPV/OPV) 1999-03-12 00:00:00 Completed [facility] Varicella (varivax)(chicken pox) 1999-03-12 00:00:00 Completed [facility] DTAP 1999-03-12 00:00:00 Completed [facility] HIB 3 Dose Schedule 1999-03-12 00:00:00 Completed [facility] MMR 1999-03-12 00:00:00 Completed [facility] Polio (IPV/OPV) 1999-03-12 00:00:00 Completed [facility] Varicella (varivax)(chicken pox) 1999-03-12 00:00:00 Completed [facility] DTAP 1999-03-12 00:00:00 Completed [facility] HIB 3 Dose Schedule 1999-03-12 00:00:00 Completed [facility] MMR 1999-03-12 00:00:00 Completed [facility] Polio (IPV/OPV) 1999-03-12 00:00:00 Completed [facility] Varicella (varivax)(chicken pox) 1999-03-12 00:00:00 Completed [facility] DTAP 1999-03-12 00:00:00 Completed [facility] HIB 3 Dose Schedule 1999-03-12 00:00:00 Completed [facility] MMR 1999-03-12 00:00:00 Completed [facility] Polio (IPV/OPV) 1999-03-12 00:00:00 Completed [facility] Varicella (varivax)(chicken pox) 1999-03-12 00:00:00 Completed [facility] Hep B, Adol or Pedi Dosage 1999-03-12 00:00:00 Completed [facility] DTAP 1999-03-12 00:00:00 Completed [facility] HIB 3 Dose Schedule 1999-03-12 00:00:00 Completed [facility] MMR 1999-03-12 00:00:00 Completed [facility] Polio (IPV/OPV) 1999-03-12 00:00:00 Completed [facility] Varicella (varivax)(chicken pox) 1999-03-12 00:00:00 Completed [facility] Hep B, Adol or Pedi Dosage 1999-03-12 00:00:00 Completed [facility] DTAP 1999-03-12 00:00:00 Completed [facility] HIB 3 Dose Schedule 1999-03-12 00:00:00 Completed [facility] MMR 1999-03-12 00:00:00 Completed [facility] Polio (IPV/OPV) 1999-03-12 00:00:00 Completed [facility] Varicella (varivax)(chicken pox) 1999-03-12 00:00:00 Completed [facility] Hep B, Adol or Pedi Dosage 1999-03-12 00:00:00 Completed [facility] DTAP 1999-03-12 00:00:00 Completed [facility] HIB 3 Dose Schedule 1999-03-12 00:00:00 Completed [facility] MMR 1999-03-12 00:00:00 Completed [facility] Polio (IPV/OPV) 1999-03-12 00:00:00 Completed [facility] Varicella (varivax)(chicken pox) 1999-03-12 00:00:00 Completed [facility] Hep B, Adol or Pedi Dosage 1999-03-12 00:00:00 Completed [facility] DTaP, Unspecified Formulation 1999-03-12 00:00:00 Completed [facility] HIB 4 Dose Schedule 1999-03-12 00:00:00 Completed [facility] IPV 1999-03-12 00:00:00 Completed [facility] DTAP 1999-03-12 00:00:00 Completed [facility] HIB 3 Dose Schedule 1999-03-12 00:00:00 Completed [facility] MMR 1999-03-12 00:00:00 Completed [facility] Polio (IPV/OPV) 1999-03-12 00:00:00 Completed [facility] Varicella (varivax)(chicken pox) 1999-03-12 00:00:00 Completed [facility] Hep B, Adol or Pedi Dosage 1999-03-12 00:00:00 Completed [facility] DTaP, Unspecified Formulation 1999-03-12 00:00:00 Completed [facility] HIB 4 Dose Schedule 1999-03-12 00:00:00 Completed [facility] IPV 1999-03-12 00:00:00 Completed [facility] DTAP 1999-03-12 00:00:00 Completed [facility] HIB 3 Dose Schedule 1999-03-12 00:00:00 Completed [facility] MMR 1999-03-12 00:00:00 Completed [facility] Polio (IPV/OPV) 1999-03-12 00:00:00 Completed [facility] Varicella (varivax)(chicken pox) 1999-03-12 00:00:00 Completed [facility] Hep B, Adol or Pedi Dosage 1999-03-12 00:00:00 Completed [facility] DTaP, Unspecified Formulation 1999-03-12 00:00:00 Completed [facility] HIB 4 Dose Schedule 1999-03-12 00:00:00 Completed [facility] IPV 1999-03-12 00:00:00 Completed [facility] DTAP 1999-03-12 00:00:00 Completed [facility] HIB 3 Dose Schedule 1999-03-12 00:00:00 Completed [facility] MMR 1999-03-12 00:00:00 Completed [facility] Polio (IPV/OPV) 1999-03-12 00:00:00 Completed [facility] Varicella (varivax)(chicken pox) 1999-03-12 00:00:00 Completed [facility] Hep B, Adol or Pedi Dosage 1999-03-12 00:00:00 Completed [facility] DTaP, Unspecified Formulation 1999-03-12 00:00:00 Completed [facility] HIB 4 Dose Schedule 1999-03-12 00:00:00 Completed [facility] IPV 1999-03-12 00:00:00 Completed [facility] DTAP 1999-03-12 00:00:00 Completed [facility] HIB 3 Dose Schedule 1999-03-12 00:00:00 Completed [facility] MMR 1999-03-12 00:00:00 Completed [facility] Polio (IPV/OPV) 1999-03-12 00:00:00 Completed [facility] Varicella (varivax)(chicken pox) 1999-03-12 00:00:00 Completed [facility] Hep B, Adol or Pedi Dosage 1999-03-12 00:00:00 Completed [facility] DTaP, Unspecified Formulation 1999-03-12 00:00:00 Completed [facility] HIB 4 Dose Schedule 1999-03-12 00:00:00 Completed [facility] IPV 1999-03-12 00:00:00 Completed [facility] DTAP 1999-03-12 00:00:00 Completed [facility] HIB 3 Dose Schedule 1999-03-12 00:00:00 Completed [facility] MMR 1999-03-12 00:00:00 Completed [facility] Polio (IPV/OPV) 1999-03-12 00:00:00 Completed [facility] Varicella (varivax)(chicken pox) 1999-03-12 00:00:00 Completed [facility] Hep B, Adol or Pedi Dosage 1999-03-12 00:00:00 Completed [facility] DTaP, Unspecified Formulation 1999-03-12 00:00:00 Completed [facility] HIB 4 Dose Schedule 1999-03-12 00:00:00 Completed [facility] IPV 1999-03-12 00:00:00 Completed [facility] DTAP 1999-03-12 00:00:00 Completed [facility] HIB 3 Dose Schedule 1999-03-12 00:00:00 Completed [facility] MMR 1999-03-12 00:00:00 Completed [facility] Polio (IPV/OPV) 1999-03-12 00:00:00 Completed [facility] Varicella (varivax)(chicken pox) 1999-03-12 00:00:00 Completed [facility] Hep B, Adol or Pedi Dosage 1999-03-12 00:00:00 Completed [facility] DTaP, Unspecified Formulation 1999-03-12 00:00:00 Completed [facility] HIB 4 Dose Schedule 1999-03-12 00:00:00 Completed [facility] IPV 1999-03-12 00:00:00 Completed [facility] DTAP 1999-03-12 00:00:00 Completed [facility] HIB 3 Dose Schedule 1999-03-12 00:00:00 Completed [facility] MMR 1999-03-12 00:00:00 Completed [facility] Polio (IPV/OPV) 1999-03-12 00:00:00 Completed [facility] Varicella (varivax)(chicken pox) 1999-03-12 00:00:00 Completed [facility] Hep B, Adol or Pedi Dosage 1999-03-12 00:00:00 Completed [facility] DTaP, Unspecified Formulation 1999-03-12 00:00:00 Completed [facility] HIB 4 Dose Schedule 1999-03-12 00:00:00 Completed [facility] IPV 1999-03-12 00:00:00 Completed [facility] HEPLISAV HEP B, ADULT 2 DOSE, IM 1999-01-30 00:00:00 Completed [facility] HEPLISAV HEP B, ADULT 2 DOSE, IM 1999-01-30 00:00:00 Completed [facility] HEPLISAV HEP B, ADULT 2 DOSE, IM 1999-01-30 00:00:00 Completed [facility] HEPLISAV HEP B, ADULT 2 DOSE, IM 1999-01-30 00:00:00 Completed [facility] HEPLISAV HEP B, ADULT 2 DOSE, IM 1999-01-30 00:00:00 Completed [facility] HEPLISAV HEP B, ADULT 2 DOSE, IM 1999-01-30 00:00:00 Completed [facility] HEPLISAV HEP B, ADULT 2 DOSE, IM 1999-01-30 00:00:00 Completed [facility] HEPLISAV HEP B, ADULT 2 DOSE, IM 1999-01-30 00:00:00 Completed [facility] Hep B, Adol or Pedi Dosage 1999-01-30 00:00:00 Completed [facility] HEPLISAV HEP B, ADULT 2 DOSE, IM 1999-01-30 00:00:00 Completed [facility] Hep B, Adol or Pedi Dosage 1999-01-30 00:00:00 Completed [facility] HEPLISAV HEP B, ADULT 2 DOSE, IM 1999-01-30 00:00:00 Completed [facility] Hep B, Adol or Pedi Dosage 1999-01-30 00:00:00 Completed [facility] HEPLISAV HEP B, ADULT 2 DOSE, IM 1999-01-30 00:00:00 Completed [facility] Hep B, Adol or Pedi Dosage 1999-01-30 00:00:00 Completed [facility] HEPLISAV HEP B, ADULT 2 DOSE, IM 1999-01-30 00:00:00 Completed [facility] Hep B, Adol or Pedi Dosage 1999-01-30 00:00:00 Completed [facility] HEPLISAV HEP B, ADULT 2 DOSE, IM 1999-01-30 00:00:00 Completed [facility] Hep B, Adol or Pedi Dosage 1999-01-30 00:00:00 Completed [facility] HEPLISAV HEP B, ADULT 2 DOSE, IM 1999-01-30 00:00:00 Completed [facility] Hep B, Adol or Pedi Dosage 1999-01-30 00:00:00 Completed [facility] HEPLISAV HEP B, ADULT 2 DOSE, IM 1999-01-30 00:00:00 Completed [facility] Hep B, Adol or Pedi Dosage 1999-01-30 00:00:00 Completed [facility] DTAP 1998-03-09 00:00:00 Completed [facility] Polio (IPV/OPV) 1998-03-09 00:00:00 Completed [facility] DTAP 1998-03-09 00:00:00 Completed [facility] Polio (IPV/OPV) 1998-03-09 00:00:00 Completed [facility] DTAP 1998-03-09 00:00:00 Completed [facility] Polio (IPV/OPV) 1998-03-09 00:00:00 Completed [facility] DTAP 1998-03-09 00:00:00 Completed [facility] Polio (IPV/OPV) 1998-03-09 00:00:00 Completed [facility] DTAP 1998-03-09 00:00:00 Completed [facility] Polio (IPV/OPV) 1998-03-09 00:00:00 Completed [facility] DTAP 1998-03-09 00:00:00 Completed [facility] Polio (IPV/OPV) 1998-03-09 00:00:00 Completed [facility] DTAP 1998-03-09 00:00:00 Completed [facility] Polio (IPV/OPV) 1998-03-09 00:00:00 Completed [facility] DTAP 1998-03-09 00:00:00 Completed [facility] Polio (IPV/OPV) 1998-03-09 00:00:00 Completed [facility] DTaP, Unspecified Formulation 1998-03-09 00:00:00 Completed [facility] HIB 4 Dose Schedule 1998-03-09 00:00:00 Completed [facility] IPV 1998-03-09 00:00:00 Completed [facility] DTAP 1998-03-09 00:00:00 Completed [facility] Polio (IPV/OPV) 1998-03-09 00:00:00 Completed [facility] DTaP, Unspecified Formulation 1998-03-09 00:00:00 Completed [facility] HIB 4 Dose Schedule 1998-03-09 00:00:00 Completed [facility] IPV 1998-03-09 00:00:00 Completed [facility] DTAP 1998-03-09 00:00:00 Completed [facility] Polio (IPV/OPV) 1998-03-09 00:00:00 Completed [facility] DTaP, Unspecified Formulation 1998-03-09 00:00:00 Completed [facility] HIB 4 Dose Schedule 1998-03-09 00:00:00 Completed [facility] IPV 1998-03-09 00:00:00 Completed [facility] DTAP 1998-03-09 00:00:00 Completed [facility] Polio (IPV/OPV) 1998-03-09 00:00:00 Completed [facility] DTaP, Unspecified Formulation 1998-03-09 00:00:00 Completed [facility] HIB 4 Dose Schedule 1998-03-09 00:00:00 Completed [facility] IPV 1998-03-09 00:00:00 Completed [facility] DTAP 1998-03-09 00:00:00 Completed [facility] Polio (IPV/OPV) 1998-03-09 00:00:00 Completed [facility] DTaP, Unspecified Formulation 1998-03-09 00:00:00 Completed [facility] HIB 4 Dose Schedule 1998-03-09 00:00:00 Completed [facility] IPV 1998-03-09 00:00:00 Completed [facility] DTAP 1998-03-09 00:00:00 Completed [facility] Polio (IPV/OPV) 1998-03-09 00:00:00 Completed [facility] DTaP, Unspecified Formulation 1998-03-09 00:00:00 Completed [facility] HIB 4 Dose Schedule 1998-03-09 00:00:00 Completed [facility] IPV 1998-03-09 00:00:00 Completed [facility] DTAP 1998-03-09 00:00:00 Completed [facility] Polio (IPV/OPV) 1998-03-09 00:00:00 Completed [facility] DTaP, Unspecified Formulation 1998-03-09 00:00:00 Completed [facility] HIB 4 Dose Schedule 1998-03-09 00:00:00 Completed [facility] IPV 1998-03-09 00:00:00 Completed [facility] DTAP 1998-03-09 00:00:00 Completed [facility] Polio (IPV/OPV) 1998-03-09 00:00:00 Completed [facility] DTaP, Unspecified Formulation 1998-03-09 00:00:00 Completed [facility] HIB 4 Dose Schedule 1998-03-09 00:00:00 Completed [facility] IPV 1998-03-09 00:00:00 Completed [facility] HEPLISAV HEP B, ADULT 2 DOSE, IM 1997 00:00:00 Completed [facility] HEPLISAV HEP B, ADULT 2 DOSE, IM 1997 00:00:00 Completed [facility] HEPLISAV HEP B, ADULT 2 DOSE, IM 1997 00:00:00 Completed [facility] HEPLISAV HEP B, ADULT 2 DOSE, IM 1997 00:00:00 Completed [facility] HEPLISAV HEP B, ADULT 2 DOSE, IM 1997 00:00:00 Completed [facility] HEPLISAV HEP B, ADULT 2 DOSE, IM 1997 00:00:00 Completed [facility] HEPLISAV HEP B, ADULT 2 DOSE, IM 1997 00:00:00 Completed [facility] HEPLISAV HEP B, ADULT 2 DOSE, IM 1997 00:00:00 Completed [facility] Hep B, Adol or Pedi Dosage 1997 00:00:00 Completed [facility] HEPLISAV HEP B, ADULT 2 DOSE, IM 1997 00:00:00 Completed [facility] Hep B, Adol or Pedi Dosage 1997 00:00:00 Completed [facility] HEPLISAV HEP B, ADULT 2 DOSE, IM 1997 00:00:00 Completed [facility] Hep B, Adol or Pedi Dosage 1997 00:00:00 Completed [facility] HEPLISAV HEP B, ADULT 2 DOSE, IM 1997 00:00:00 Completed [facility] Hep B, Adol or Pedi Dosage 1997 00:00:00 Completed [facility] HEPLISAV HEP B, ADULT 2 DOSE, IM 1997 00:00:00 Completed [facility] Hep B, Adol or Pedi Dosage 1997 00:00:00 Completed [facility] HEPLISAV HEP B, ADULT 2 DOSE, IM 1997 00:00:00 Completed [facility] Hep B, Adol or Pedi Dosage 1997 00:00:00 Completed [facility] HEPLISAV HEP B, ADULT 2 DOSE, IM 1997 00:00:00 Completed [facility] Hep B, Adol or Pedi Dosage 1997 00:00:00 Completed [facility] HEPLISAV HEP B, ADULT 2 DOSE, IM 1997 00:00:00 Completed [facility] Hep B, Adol or Pedi Dosage 1997 00:00:00 Completed [facility] Influenza Virus Vaccine Quad .5 mL IM 6+ MO (FLUZONE/FLULAVAL/FL UARIX) Unknown Completed [facility] TDAP (ADACEL) VACCINE Unknown Completed [facility] DTAP Unknown Completed [facility] DTAP Unknown Completed [facility] DTAP Unknown Completed [facility] DTAP Unknown Completed [facility] HIB 3 Dose Schedule Unknown Completed [facility] HEPLISAV HEP B, ADULT 2 DOSE, IM Unknown Completed [facility] HEPLISAV HEP B, ADULT 2 DOSE, IM Unknown Completed [facility] Meningococcal Polysaccharide (groups A, C, Y and W-135) conjugate vaccine (MCV4P) Unknown Completed [facility] MMR Unknown Completed [facility] MMR Unknown Completed [facility] Polio (IPV/OPV) Unknown Completed [facility] Polio (IPV/OPV) Unknown Completed [facility] Polio (IPV/OPV) Unknown Completed [facility] Polio (IPV/OPV) Unknown Completed [facility] TDAP Unknown Completed [facility] Varicella (varivax)(chicken pox) Unknown Completed [facility] Varicella (varivax)(chicken pox) Unknown Completed [facility] Hep B, Adol or Pedi Dosage Unknown Completed [facility] DTaP, Unspecified Formulation Unknown Completed [facility] DTaP, Unspecified Formulation Unknown Completed [facility] DTaP, Unspecified Formulation Unknown Completed [facility] DTaP, Unspecified Formulation Unknown Completed [facility] Flu Trivalent Unknown Completed [facility] Hep B, Adol or Pedi Dosage Unknown Completed [facility] Hep B, Adol or Pedi Dosage Unknown Completed [facility] HIB 4 Dose Schedule Unknown Completed [facility] HIB 4 Dose Schedule Unknown Completed [facility] IPV Unknown Completed [facility] IPV Unknown Completed [facility] IPV Unknown Completed [facility] IPV Unknown Completed [facility] Influenza Virus Vaccine Quad .5 mL IM 6+ MO (FLUZONE/FLULAVAL/FL UARIX) Unknown Completed [facility] TDAP (ADACEL) VACCINE Unknown Completed [facility] DTAP Unknown Completed [facility] DTAP Unknown Completed [facility] DTAP Unknown Completed [facility] DTAP Unknown Completed [facility] HIB 3 Dose Schedule Unknown Completed [facility] HEPLISAV HEP B, ADULT 2 DOSE, IM Unknown Completed [facility] HEPLISAV HEP B, ADULT 2 DOSE, IM Unknown Completed [facility] Meningococcal Polysaccharide (groups A, C, Y and W-135) conjugate vaccine (MCV4P) Unknown Completed [facility] MMR Unknown Completed [facility] MMR Unknown Completed [facility] Polio (IPV/OPV) Unknown Completed [facility] Polio (IPV/OPV) Unknown Completed [facility] Polio (IPV/OPV) Unknown Completed [facility] Polio (IPV/OPV) Unknown Completed [facility] TDAP Unknown Completed [facility] Varicella (varivax)(chicken pox) Unknown Completed [facility] Varicella (varivax)(chicken pox) Unknown Completed [facility] Hep B, Adol or Pedi Dosage Unknown Completed [facility] DTaP, Unspecified Formulation Unknown Completed [facility] DTaP, Unspecified Formulation Unknown Completed [facility] DTaP, Unspecified Formulation Unknown Completed [facility] DTaP, Unspecified Formulation Unknown Completed [facility] Flu Trivalent Unknown Completed [facility] Hep B, Adol or Pedi Dosage Unknown Completed [facility] Hep B, Adol or Pedi Dosage Unknown Completed [facility] HIB 4 Dose Schedule Unknown Completed [facility] HIB 4 Dose Schedule Unknown Completed [facility] IPV Unknown Completed [facility] IPV Unknown Completed [facility] IPV Unknown Completed [facility] IPV Unknown Completed [facility] Influenza Virus Vaccine Quad .5 mL IM 6+ MO (FLUZONE/FLULAVAL/FL UARIX) Unknown Completed [facility] TDAP (ADACEL) VACCINE Unknown Completed [facility] DTAP Unknown Completed [facility] DTAP Unknown Completed [facility] DTAP Unknown Completed [facility] DTAP Unknown Completed [facility] HIB 3 Dose Schedule Unknown Completed [facility] HEPLISAV HEP B, ADULT 2 DOSE, IM Unknown Completed [facility] HEPLISAV HEP B, ADULT 2 DOSE, IM Unknown Completed [facility] Meningococcal Polysaccharide (groups A, C, Y and W-135) conjugate vaccine (MCV4P) Unknown Completed [facility] MMR Unknown Completed [facility] MMR Unknown Completed [facility] Polio (IPV/OPV) Unknown Completed [facility] Polio (IPV/OPV) Unknown Completed [facility] Polio (IPV/OPV) Unknown Completed [facility] Polio (IPV/OPV) Unknown Completed [facility] TDAP Unknown Completed [facility] Varicella (varivax)(chicken pox) Unknown Completed [facility] Varicella (varivax)(chicken pox) Unknown Completed [facility] Hep B, Adol or Pedi Dosage Unknown Completed [facility] DTaP, Unspecified Formulation Unknown Completed [facility] DTaP, Unspecified Formulation Unknown Completed [facility] DTaP, Unspecified Formulation Unknown Completed [facility] DTaP, Unspecified Formulation Unknown Completed [facility] Flu Trivalent Unknown Completed [facility] Hep B, Adol or Pedi Dosage Unknown Completed [facility] Hep B, Adol or Pedi Dosage Unknown Completed [facility] HIB 4 Dose Schedule Unknown Completed [facility] HIB 4 Dose Schedule Unknown Completed [facility] IPV Unknown Completed [facility] IPV Unknown Completed [facility] IPV Unknown Completed [facility] IPV Unknown Completed [facility] Influenza Virus Vaccine Quad .5 mL IM 6+ MO (FLUZONE/FLULAVAL/FL UARIX) Unknown Completed [facility] TDAP (ADACEL) VACCINE Unknown Completed [facility] DTAP Unknown Completed [facility] DTAP Unknown Completed [facility] DTAP Unknown Completed [facility] DTAP Unknown Completed [facility] HIB 3 Dose Schedule Unknown Completed [facility] HEPLISAV HEP B, ADULT 2 DOSE, IM Unknown Completed [facility] HEPLISAV HEP B, ADULT 2 DOSE, IM Unknown Completed [facility] Meningococcal Polysaccharide (groups A, C, Y and W-135) conjugate vaccine (MCV4P) Unknown Completed [facility] MMR Unknown Completed [facility] MMR Unknown Completed [facility] Polio (IPV/OPV) Unknown Completed [facility] Polio (IPV/OPV) Unknown Completed [facility] Polio (IPV/OPV) Unknown Completed [facility] Polio (IPV/OPV) Unknown Completed [facility] TDAP Unknown Completed [facility] Varicella (varivax)(chicken pox) Unknown Completed [facility] Varicella (varivax)(chicken pox) Unknown Completed [facility] Hep B, Adol or Pedi Dosage Unknown Completed [facility] DTaP, Unspecified Formulation Unknown Completed [facility] DTaP, Unspecified Formulation Unknown Completed [facility] DTaP, Unspecified Formulation Unknown Completed [facility] DTaP, Unspecified Formulation Unknown Completed [facility] Flu Trivalent Unknown Completed [facility] Hep B, Adol or Pedi Dosage Unknown Completed [facility] Hep B, Adol or Pedi Dosage Unknown Completed [facility] HIB 4 Dose Schedule Unknown Completed [facility] HIB 4 Dose Schedule Unknown Completed [facility] IPV Unknown Completed [facility] IPV Unknown Completed [facility] IPV Unknown Completed [facility] IPV Unknown Completed [facility] Vital Signs Vital Name Observation Time Observation Value Comments S ource Systolic blood pressure 2023-01-27 16:19:00 128 mm[Hg] [facility] Diastolic blood pressure 2023-01-27 16:19:00 73 mm[Hg] [facility] Heart rate 2023-01-27 16:19:00 80 /min [facility] Body temperature 2023-01-27 16:19:00 36.33 Colleen [facility] Respiratory rate 2023-01-27 16:19:00 18 /min [facility] Body height 2023-01-27 16:19:[address] [facility] Body weight 2023-01-27 16:19:[address] [facility] BMI 2023-01-27 16:19:00 32.84 kg/m2 [facility] Systolic blood pressure 2022-08-08 18:21:00 133 mm[Hg] [facility] Diastolic blood pressure 2022-08-08 18:21:00 88 mm[Hg] [facility] Heart rate 2022-08-08 18:21:00 76 /min [facility] Body temperature 2022-08-08 18:21:00 36.22 Colleen [facility] Respiratory rate 2022-08-08 18:21:00 18 /min [facility] Body height 2022-08-08 18:21:00 160 cm [facility] Body weight 2022-08-08 18:21:[address] [facility] BMI 2022-08-08 18:21:00 32.15 kg/m2 [facility] Systolic blood pressure 2022-05-08 19:42:00 112 mm[Hg] [facility] Diastolic blood pressure 2022-05-08 19:42:00 71 mm[Hg] [facility] Heart rate 2022-05-08 19:42:00 81 /min [facility] Body temperature 2022-05-08 19:42:00 36.06 Colleen [facility] Respiratory rate 2022-05-08 19:42:00 18 /min [facility] Body height 2022-05-08 19:42:00 160 cm [facility] Body weight 2022-05-08 19:42:00 79.561 kg [facility] BMI 2022-05-08 19:42:00 31.07 kg/m2 [facility] Systolic blood pressure 2022-04-30 18:29:00 123 mm[Hg] [facility] Diastolic blood pressure 2022-04-30 18:29:00 84 mm[Hg] [facility] Heart rate 2022-04-30 18:29:00 92 /min [facility] Body temperature 2022-04-30 18:29:00 36.89 Colleen [facility] Respiratory rate 2022-04-30 18:29:00 18 /min [facility] Body height 2022-04-30 18:29:[address] [facility] Body weight 2022-04-30 18:29:[address] [facility] BMI 2022-04-30 18:29:00 31.67 kg/m2 [facility] Systolic blood pressure 2021-06-20 14:29:00 107 mm[Hg] [place] [facility] Diastolic blood pressure 2021-06-20 14:29:00 67 mm[Hg] [place] [facility] Heart rate 2021-06-20 14:29:00 70 /min [facility] Body temperature 2021-06-20 14:29:00 37 Colleen [facility] Body height 2021-06-20 14:29:[address] [facility] Body weight 2021-06-20 14:29:[address] [facility] BMI 2021-06-20 14:29:00 31.89 kg/m2 [facility] Procedures Procedure Date / Time Performed Performing Clinician Source POCT TEST 2023-01-27 15:58:00 Js Anderson [facility] POCT URINALYSIS W/O SPECIFIC GRAVITY 2023-01-27 15:58:00 Chelsie Anderson [facility] POCT TEST 2022-08-08 18:34:00 Js Anderson [facility] POCT TEST 2022-05-08 19:57:00 Js Anderson [facility] ASSIGNMENT OF BENEFITS 2022-05-08 18:57:53 Docto r Unassigned, Dearing [facility] PAP SMEAR-LIQUID BASED-CP 2022-04-30 19:23:00 Chelsie Anderson [facility] HIV 1/2 AG-AB WITH REFLEX 2022-04-30 19:15:00 Chelsie Anderson [facility] SYPHILIS IGG/IGM 2022-04-30 19:15:00 Ivanna Anderson [facility] POCT URINALYSIS W/O SPECIFIC GRAVITY 2022-04-30 18:34:00 Chelsie Anderson [facility] POCT TEST 2022-04-30 18:33:00 Js Anderson [facility] ASSIGNMENT OF BENEFITS 2022-04-30 18:14:06 Docto r Unassigned, Dearing [facility] CONSENT FOR CONTRACEPTION 2021-06-20 05:01:00 Doctor Unassigned, Dearing [facility] POCT TEST 2021-06-20 00:00:00 Denys Moreau [facility] POCT URINALYSIS W/O SPECIFIC GRAVITY 2021-06-20 00:00:00 Denys Moreau [facility] Plan of Care Planned Activity Planned Date Details Comments Source Encounters Start Date/Time End Date/Time Encounter Type Admission Type Attending [facility] Facility Care Department Encounter ID Source 2023-05-11 14:30:00 2023-05-11 14:30:00 Outpatient R CHELSIE ANDERSON [facility] [id number] [facility] 2023-01-27 10:00:00 2023-01-27 11:19:27 Outpatient R CHELSIE ANDERSON [facility] [id number] [facility] 2023-01-27 10:00:00 2023-01-27 11:19:27 Initial Visit Chelsie Anderson [facility]ILD [facility] ..840.114 350.1.13.10 4.2.7.2.686 [id number] [facility] 2022-08-08 13:30:00 2022-08-08 13:58:48 Outpatient R CHELSIE ANDERSON [facility] [id number] [facility] 2022-08-08 13:30:00 2022-08-08 13:58:48 Office Visit Chelsie Anderson [facility] ..840.114 350.1.13.10 4.2.7.2.686 [id number] [facility] 2022-08-08 13:30:00 2022-08-08 13:30:00 Outpatient R CHELSIE ANDERSON [facility] [id number] [facility] 2022-07-17 00:00:00 2022-07-17 00:00:00 Refill Chelsie Anderson [facility] 1..114 350.1.13.10 4.2.7.2.686 [id number] [facility] 2022-05-08 14:30:00 2022-05-08 14:45:00 Office Visit Chelsie Anderson [facility]ILD [facility] 1..114 350.1.13.10 4.2.7.2.686 [id number] [facility] 2022-05-08 14:30:00 2022-05-08 14:30:00 Outpatient R CHELSIE ANDERSON [facility] [id number] [facility] 2022-05-08 00:00:00 2022-05-08 00:00:00 Orders Only Doctor Unassigned, Dearing [facility] 1..114 350.1.13.10 4.2.7.2.686 [id number] [facility] 2022-04-30 13:30:00 2022-04-30 16:47:19 Outpatient R CHELSIE ANDERSON [facility] [id number] [facility] 2022-04-30 13:30:00 2022-04-30 16:47:19 Office Visit Chelsie Anderson [facility] & CHILD [facility] 1..114 350.1.13.10 4.2.7.2.686 [id number] [facility] 2022-04-30 00:00:00 2022-04-30 00:00:00 Orders Only Doctor Unassigned, Dearing [facility] 1.2.840.114 350.1.13.10 4.2.7.2.686 [id number] [facility] 2022-03-14 00:00:00 2022-03-14 00:00:00 Refill Denys Moreau [facility] 1.2.840.114 350.1.13.10 4.2.7.2.686 [id number] [facility] 2021 09:00:00 2021 09:00:00 Outpatient REGLA BYRD [facility] [id number] [facility] 2021-12-11 12:45:00 2021-12-11 12:45:00 Outpatient HAMZAH EDWARDS [facility] [id number] [facility] 2021-11-11 00:00:00 2021-11-11 00:00:00 Patient Secure Msg MoreauIsabellaen [facility] 1.2.840.114 350.1.13.10 4.2.7.2.686 [id number] [facility] 2021-07-25 10:30:00 2021-07-25 10:30:00 Outpatient R DENYS MOREAU [facility] [id number] [facility] 2021-06-21 00:00:00 2021-06-21 00:00:00 Telephone Denys Moreau [facility] 1..840.114 350.1.13.10 4.2.7.2.686 [id number] [facility] 2021-06-20 09:00:00 2021-06-20 09:54:46 Office Visit Denys Moreau [facility] 1..840.114 350.1.13.10 4.2.7.2.686 [id number] [facility] 2021-06-20 09:00:00 2021-06-20 09:54:46 Outpatient DENYS HER [facility] [id number] [facility] 2021-06-20 09:00:00 2021-06-20 09:00:00 Outpatient Mitch MOREAU [facility] [id number] [facility] 2021-06-20 00:00:00 2021-06-20 00:00:00 Orders Only Doctor Unassigned, Dearing [facility] ..840.114 350.1.13.10 4.2.7.2.686 [id number] [facility] 2021-06-10 03:08:00 2021-06-10 03:08:00 Outpatient LISTER_MELI [facility] [id number] [facility] 2021-06-10 00:00:00 2021-06-10 00:00:00 Outpatient LISTER_MELI [facility] [id number] [facility] 2021-06-05 00:00:00 2021-06-05 00:00:00 Orders Only Doctor Unassigned, Dearing [facility] ..840.114 350.1.13.10 4.2.7.2.686 [id number] [facility] 2021-05-08 00:00:00 2021-05-08 00:00:00 Case Management Joseline Roth 1..840.114 350.1.13.10 4.2.7.2.686 [id number] [facility] 2021-05-06 00:00:00 2021-05-06 00:00:00 Patient Secure Msg Vanaphan, [facility] 1.2.840.114 350.1.13.10 4.2.7.2.686 [id number] [facility] 2021-02-05 15:00:00 2021-02-05 15:00:00 Outpatient R LATIA ZAMUDIO [facility] [id number] [facility] 2021-01-02 12:58:57 2021-01-02 13:28:57 Office Visit Latia Zamudio [facility] 1.2.840.114 350.1.13.10 4.2.7.2.686 [id number] [facility] 2021-01-02 13:00:00 2021-01-02 13:00:00 [facility] [id number] [facility] 2021-01-02 00:00:00 2021-01-02 00:00:00 Telephone Latia Zamudio [facility] 1.2.840.114 350.1.13.10 4.2.7.2.686 [id number] 134 [id number] [facility] 2021-01-02 00:00:00 2021-01-02 00:00:00 Letter (Out) Latia Zamudio [facility] 1.2.840.114 350.1.13.10 4.2.7.2.686 [id number] [facility] 2021-01-02 00:00:00 2021-01-02 00:00:00 Orders Only Doctor Unassigned, Dearing [facility] 1.2.840.114 350.1.13.10 4.2.7.2.686 [id number] [facility] 2020-09-04 10:30:00 2020-09-04 10:30:00 [facility] [id number] [facility] 2020-05-08 00:00:00 2020-05-08 00:00:00 Patient Outreach Andre York [facility] 1.2840.114 350.1.13.10 4.2.7.2.686 [id number] [facility] 2020-03-20 00:00:00 2020-03-20 00:00:00 Telephone Alyson [facility] [address] [facility] 1.0.114 350.1.13.10 4.2.7.2.686 [id number] [facility] 2020-03-19 19:00:00 2020-03-19 23:59:00 [facility].114 350.1.13.10 4.2.7.2.686 [id number] [facility] 2020-03-19 11:25:58 2020-03-19 12:42:16 Urgent Care Provider, [facility] Alyson [facility] 1.2.114 350.1.13.10 4.2.7.2.686 [id number] [facility] 2020-03-19 11:40:00 2020-03-19 11:40:00 Outpatient R ALYSON NATASHA [facility] [id number] [facility] 2020-03-19 00:00:00 2020-03-19 00:00:00 Letter (Out) Provider, [facility] 1..114 350.1.13.10 4.2.7.2.686 [id number] [facility] 2020-03-18 08:20:00 2020-03-18 08:20:00 Outpatient MIKEY MOSLEY [facility] [id number] [facility] 2020-01-04 02:44:00 2020-01-04 02:44:00 Outpatient Rod sheppard [facility] [id number] [facility] 2019-09-12 00:00:00 2019-09-12 00:00:00 Case Management DonannettaLatia tamayo [facility] 1..840.114 350.1.13.10 4.2.7.2.686 [id number] [facility] 2019-09-05 15:16:01 2019-09-05 15:57:33 Office Visit DonannettaLatia tamayo [facility] 1..840.114 350.1.13.10 4.2.7.2.686 [id number] [facility] 2019-09-05 15:30:00 2019-09-05 15:30:00 Outpatient R [facility] [id number] [facility] 2019-09-05 00:00:00 2019-09-05 00:00:00 Orders Only Doctor Unassigned, Dearing [facility] 1..840.114 350.1.13.10 4.2.7.2.686 [id number] [facility] 2019-07-27 14:00:00 2019-07-27 14:00:00 Outpatient R LATIA ZAMUDIO [facility] [id number] [facility] 2019-03-16 11:13:42 2019-03-16 11:41:46 Office Visit Denys Moreau [facility] 1..840.114 350.1.13.10 4.2.7.2.686 [id number] [facility] 2018-10-29 13:01:31 2018-10-29 14:19:19 Routine Visit Uri Burns [facility] 1.2.840.114 350.1.13.10 4.2.7.2.686 [id number] [facility] 2018-09-30 13:06:56 2018-09-30 14:14:06 Routine Visit Uri Burns [facility] 1.2.840.114 350.1.13.10 4.2.7.2.686 [id number] [facility] 2018-09-09 00:00:00 2018-09-09 00:00:00 Patient Secure Melany Ferrera [facility] 1.2.840.114 350.1.13.10 4.2.7.2.686 [id number] [facility] Results Test Description Test Time Test Comments Results Result Co mments Source [facility] Specific [id number] 15:59:00* Test Item Value Reference Range Interpretation Comme nts POCT PH U (test code = 3254) 6 mg/dl 5-8 POCT U LEUK EST (test code = 3263) trace Negative - Negative POCT U NIT (test code = 3262) neg Negative - Negati ve POCT U PROT (test code = 3259) trace Negative - Negat cande POCT U GLU (test code = 3256) neg Negative - Negati ve POCT U KETONE (test code = 3258) neg Negative - Neg ative POCT U BLD (test code = 3257) neg Negative - Negati ve [facility] w/o Specific [id number] 15:59:00* Test Item Value Reference Range Interpretation Comme nts POCT PH U (test code = 3254) 6 mg/dl 5-8 POCT U LEUK EST (test code = 3263) trace Negative - Negative POCT U NIT (test code = 3262) neg Negative - Negati ve POCT U PROT (test code = 3259) trace Negative - Negat cande POCT U GLU (test code = 3256) neg Negative - Negati ve POCT U KETONE (test code = 3258) neg Negative - Neg ative POCT U BLD (test code = 3257) neg Negative - Negati ve [facility] [id number] 15:58:00* Test Item Value Reference Range Interpretation Comme nts POCT PREG (test code = 1605) Positive On board controls acceptable with C Line (test code = 3574) Yes POCT PREG LOT # (test code = 3575) POCT PREG TEST DATE ( test code = 3576) [facility] [id number] 15:58:00* Test Item Value Reference Range Interpretation Comme nts POCT PREG (test code = 1605) Positive On board controls acceptable with C Line (test code = 3574) Yes POCT PREG LOT # (test code = 3575) POCT PREG TEST DATE ( test code = 3576) [facility] [id number] 15:58:00* Test Item Value Reference Range Interpretation Comme nts POCT PREG (test code = 1605) Positive On board controls acceptable with C Line (test code = 3574) Yes POCT PREG LOT # (test code = 3575) POCT PREG TEST DATE ( test code = 3576) [facility] [id number] 18:34:00* Test Item Value Reference Range Interpretation Comme nts POCT PREG (test code = 1605) Negative On board controls acceptable with C Line (test code = 3574) Yes POCT PREG LOT # (test code = 3575) POCT PREG TEST DATE ( test code = 3576) [facility] [id number] 18:34:00* Test Item Value Reference Range Interpretation Comme nts POCT PREG (test code = 1605) Negative On board controls acceptable with C Line (test code = 3574) Yes POCT PREG LOT # (test code = 3575) POCT PREG TEST DATE ( test code = 3576) [facility] [id number] 19:57:00* Test Item Value Reference Range Interpretation Comme nts POCT PREG (test code = 1605) Negative On board controls acceptable with C Line (test code = 3574) Yes POCT PREG LOT # (test code = 3575) POCT PREG TEST DATE ( test code = 3576) [id number] 19:57:00* Test Item Value Reference Range Interpretation Comme nts POCT PREG (test code = 1605) Negative On board controls acceptable with C Line (test code = 3574) Yes POCT PREG LOT # (test code = 3575) POCT PREG TEST DATE ( test code = 3576) [facility] [id number] 14:31:12* Test Item Value Reference Range Interpretation Comme nts Syphilis IgG/IgM (test code = 26333-1) Non-reactive Non-reactive CROW (test code = CROW) Non-reactive - No serologic evidence of T. pallidum infection. Cannot exclude incubating or early syphilis. Submit a second specimen in 2-4 weeks if syphilis is clinically suspected. Equivocal - Further testing to follow. Reactive - Further testing to follow. Lab Interpretation (test code = 59768-5) Normal [facility] [id number] 14:31:12* Test Item Value Reference Range Interpretation Comme nts Syphilis IgG/IgM (test code = 21556-9) Non-reactive Non-reactive CROW (test code = CROW) Non-reactive - No serologic evidence of T. pallidum infection. Cannot exclude incubating or early syphilis. Submit a second specimen in 2-4 weeks if syphilis is clinically suspected. Equivocal - Further testing to follow. Reactive - Further testing to follow. Lab Interpretation (test code = 22957-5) [facility] WITH [id number] 06:25:04* Test Item Value Reference Range Interpretation Comme nts HIV Semi-quantitative (test code = 70194-7) 0.08 Negative CROW (test code = CROW) Non-reactive for HIV-1 antigen and HIV-1/HIV-2 antibodies. ?No laboratory evidence of HIV infection. ?Repeat in 2-4 weeks if acute HIV infection is suspected. [facility] 1/2 AG-AB WITH [id number] 06:25:04* Test Item Value Reference Range Interpretation Comme nts HIV Semi-quantitative (test code = 56468-9) 0.08 Negative CROW (test code = CROW) Non-reactive for HIV-1 antigen and HIV-1/HIV-2 antibodies. ?No laboratory evidence of HIV infection. ?Repeat in 2-4 weeks if acute HIV infection is suspected. [facility] URINALYSIS W/O SPECIFIC [id number] 18:34:00* Test Item Value Reference Range Interpretation Comme nts POCT PH U (test code = 3254) 8 mg/dl 5-8 POCT U LEUK EST (test code = 3263) 2+ Negative - Negative POCT U NIT (test code = 3262) Neg Negative - Negati ve POCT U PROT (test code = 3259) 2+ Negative - Negat cande POCT U GLU (test code = 3256) Neg Negative - Negati ve POCT U KETONE (test code = 3258) None Negative - Neg ative POCT U BLD (test code = 3257) Large Negative - Negati ve [facility] URINALYSIS W/O SPECIFIC [id number] 18:34:00* Test Item Value Reference Range Interpretation Comme nts POCT PH U (test code = 3254) 8 mg/dl 5-8 POCT U LEUK EST (test code = 3263) 2+ Negative - Negative POCT U NIT (test code = 3262) Neg Negative - Negati ve POCT U PROT (test code = 3259) 2+ Negative - Negat cande POCT U GLU (test code = 3256) Neg Negative - Negati ve POCT U KETONE (test code = 3258) None Negative - Neg ative POCT U BLD (test code = 3257) Large Negative - Negati ve [facility] [id number] 18:33:00* Test Item Value Reference Range Interpretation Comme nts POCT PREG (test code = 1605) Negative On board controls acceptable with C Line (test code = 3574) Yes POCT PREG LOT # (test code = 3575) POCT PREG TEST DATE ( test code = 3576) [facility] [id number] 18:33:00* Test Item Value Reference Range Interpretation Comme nts POCT PREG (test code = 1605) Negative On board controls acceptable with C Line (test code = 3574) Yes POCT PREG LOT # (test code = 3575) POCT PREG TEST DATE ( test code = 3576) [facility] [id number] 15:11:00* Test Item Value Reference Range Interpretation Comme nts POCT PREG (test code = 1605) Negative On board controls acceptable with C Line (test code = 3574) Yes POCT PREG LOT # (test code = 3575) POCT PREG TEST DATE ( test code = 3576) [facility] [id number] 15:11:00* Test Item Value Reference Range Interpretation Comme nts POCT PREG (test code = 1605) Negative On board controls acceptable with C Line (test code = 3574) Yes POCT PREG LOT # (test code = 3575) POCT PREG TEST DATE ( test code = 3576) [facility] URINALYSIS W/O SPECIFIC [id number] 14:38:00* Test Item Value Reference Range Interpretation Comme nts POCT PH U (test code = 3254) 6 mg/dl 5-8 POCT U LEUK EST (test code = 3263) + Negative - Negative POCT U NIT (test code = 3262) Negative Negative - Negati ve POCT U PROT (test code = 3259) Negative Negative - Negat cande POCT U GLU (test code = 3256) Negative Negative - Negati ve POCT U KETONE (test code = 3258) Negative Negative - Neg ative POCT U BLD (test code = 3257) Trace Negative - Negati ve [facility] URINALYSIS W/O SPECIFIC [id number] 14:38:00* Test Item Value Reference Range Interpretation Comme nts POCT PH U (test code = 3254) 6 mg/dl 5-8 POCT U LEUK EST (test code = 3263) + Negative - Negative POCT U NIT (test code = 3262) Negative Negative - Negati ve POCT U PROT (test code = 3259) Negative Negative - Negat cande POCT U GLU (test code = 3256) Negative Negative - Negati ve POCT U KETONE (test code = 3258) Negative Negative - Neg ative POCT U BLD (test code = 3257) Trace Negative - Negati ve [facility]
[2023-01-27 16:52] LABS: Hematocrit 39.6 % (36.0-45.0); Lymphocytes % 23.2 % (15.3-44.8); MCV 85.4 fL (80-100); MPV 7.6 fL (7.6-11.3); Platelets 305 thou/uL (152-406); RBC Red Blood Cell Count 4.64 M/uL (3.86-4.86)
[2023-01-27 16:53] LABS: Absolute Lymphocytes (CBC) 2.3 K/uL (0.7-4.9)
[2023-01-27 16:56] LABS: Urine Bacteria <20 /HPF (<20); Urine Bilirubin NEGATIVE (Negative); Urine Blood Negative (Negative); Urine Clarity Extremely Turbid (Clear); Urine Color Light-Yellow (Yellow); Urine Glucose NEGATIVE (Negative); Urine Protein NEGATIVE (Negative); Urine RBC <5 /HPF (None Seen); Urine Urobilinogen Normal (Normal)
[2023-01-27 17:31] LABS: Potassium 3.9 mEq/L (3.5-5.1)
--- NOTE | 2023-01-27 18:32 | RAD REPORT ---
EXAM DESCRIPTION: US - Transvaginal OB - 01/27/2023 5:49 pm CLINICAL HISTORY: r/o ectopic COMPARISON: Transvaginal OB dated 08/16/2015 TECHNIQUE: Sonographic grayscale and color flow images of a first-trimester were obtained through transvaginal approach. FINDINGS: A single live intrauterine is identified. Clutier-rump length measures 8.7 millimeters, corresponding to gestational age of 6 weeks, 6 days. heart rate: 127 BPM Small crescentic hypoechoic region caudal to the decidua, measuring 1.5 cm in greatest axial extent a nd 3 mm in thickness. Normal yolk sac is visualized. Maternal ovaries are unremarkable apart from a 2.9 cm dominant cyst or follicle of the right ovary. No free fluid. IMPRESSION: 1. Single live intrauterine . 2. Crescentic hypoechoic region suggestive of a subchorionic hemorrhage, as described above. Close cl inical follow-up, and consideration of short-term sonographic follow-up is recommended. 3. Calculated gestational age: 6 weeks, 6 days. Estimated due date by ultrasound: 09/16/2023.
--- NOTE | 2023-01-27 18:34 | ER ---
Nurse's Notes [facility] Name: Leora Watt Age: 27 yrs Sex: Female : 1995 Arrival Date: 01/27/2023 Time: 16:22 Bed 11 Private MD: Diagnosis: Less than 8 weeks gestation of Presentation: 01/27 16:28 Chief complaint: Patient states: Pt c/o severe left side abdominal pain x 1 week. Pt is tl4 7wks 2 days and was sent by OB to rule out ectopic . Pt denies any vaginal bleeding or discharge, or any other new symptoms. Coronavirus screen: Vaccine status: Patient reports being unvaccinated. At this time, the client does not indicate any symptoms associated with coronavirus-19. Ebola Screen: Patient negative for fever greater than or equal to 101.5 degrees Fahrenheit, and additional compatible Ebola Virus Disease symptoms Patient denies exposure to infectious person. Patient denies travel to an Ebola-affected area in the 21 days before illness onset. No symptoms or risks identified at this time. Initial Sepsis Screen: Does the patient meet any 2 criteria? No. Patient's initial sepsis screen is negative. Does the patient have a suspected source of infection? No. Patient's initial sepsis screen is negative. Risk Assessment: Do you want to hurt yourself or someone else? Patient reports no desire to harm self or others. Onset of symptoms was January 19, 2023. 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 - Social history:: Smoking status: Patient denies any tobacco usage or history of. Screenin:02 [facility] ED Fall Risk Assessment (Adult) History of falling in the last 3 months, me1 including since admission No falls in past 3 months (0 pts) Confusion or Disorientation No (0 pts) Intoxicated or Sedated No (0 pts) Impaired Gait No (0 pts) Mobility Assist Device Used No (0 pt) Altered Elimination No (0 pt) Score/Fall Risk Level 0 - 2 = Low Risk Maintained a safe environment, Provided non-skid footwear, Hourly rounding (assess needs \T\ fall precautionary measures) done. Abuse screen: Denies threats or abuse. Nutritional screening: No deficits noted. Tuberculosis screening: No symptoms or risk factors identified. Assessment: 18:02 General: Appears comfortable, well groomed, well developed, well nourished, Behavior is me1 calm, cooperative, appropriate for age, Reports Pt c/o severe left side abdominal pain x 1 week. Pt is 7wks 2 days and was sent by OB to rule out ectopic . Pt denies any vaginal bleeding or discharge, or any other new symptoms. Pain: Complains of pain in left lower quadrant Pain does not radiate. Pain currently is 7 out of 10 on a pain scale. Quality of pain is described as sharp, Pain began gradually, Is intermittent, Alleviated by rest, repositioning. Neuro: Level of Consciousness is awake, alert, obeys commands, Oriented to person, place, time, situation, Appropriate for age. Cardiovascular: Capillary refill < 3 seconds Patient's skin is warm and dry. Respiratory: Airway is patent Respiratory effort is even, unlabored, Respiratory pattern is regular, symmetrical. GI: Bowel sounds present X 4 quads. Abd is soft and non tender X 4 quads. Vital Signs: 16:28 BP 138 / 73; Pulse 82; Resp 16; Temp 97.3; Pulse Ox 100% on R/A; Weight 82.55 kg; tl4 Height 5 ft. 3 in. ; Pain 5/10; 18:01 BP 112 / 66; Pulse 80; Resp 18; Pulse Ox 100% on R/A; me1 18:50 BP 116 / 84; Pulse 77; Resp 18; Pulse Ox 100% on R/A; me1 16:28 Body Mass Index 32.24 (82.55 kg, 160.02 cm) tl4 16:28 Pain Scale: Adult tl4 ED Course: 16:26 Patient arrived in ED. im 16:26 Emilia Kaur FNP-C is [facility]. kb 16:26 David Flores MD is Attending Physician. kb 16:32 Triage completed. tl4 16:32 Arm band placed on Patient placed in an exam room, on a stretcher. tl4 16:41 Abo/rh Typing Sent. tl4 16:41 Basic Metabolic Panel Sent. tl4 16:41 CBC with Diff Sent. tl4 16:55 Lynette Garcia, RN is Primary Nurse. me1 17:51 US Transvaginal Ob In Process Unspecified. EDMS 18:02 Patient has correct armband on for positive identification. Placed in gown. Bed in low me1 position. Call light in reach. Side rails up X 1. Provided Education on: POC. Verbalized understanding.. 18:02 No provider procedures requiring assistance completed. me1 18:51 IV discontinued, intact, bleeding controlled, No redness/swelling at site. Pressure me1 dressing applied. Administered Medications: No medications were administered Medication: 18:02 VIS not applicable for this client. me1 Outcome: 18:34 Discharge ordered by MD. kb 18:51 Discharged to home ambulatory, me1 18:51 Condition: stable 18:51 Discharge instructions given to patient, Instructed on discharge instructions, follow up and referral plans. Demonstrated understanding of instructions, follow-up care, 18:52 Patient left the ED. me1 Signatures: Dispatcher [employer] EDMA Emilia Kaur, HAND FLATWORK FINISHER-C HAND FLATWORK FINISHER-Maryellen Moran Michelle, RN RN me1 LogdaCeferino mei tl4 Corrections: (The following items were deleted from the chart) 18:02 16:28 Chief complaint: Patient states: Pt c/o severe left side abdominal pain x 1 week. me1 Pt is 7wks 2 days and was sent by OB to rule out ectopic . Pt denies any vaginal bleeding or discharge, or any other new symptoms. tl4
--- NOTE | 2023-01-27 18:34 | EDPHYS ---
Physician Documentation [facility] Name: Leora Watt Age: 27 yrs Sex: Female : 1995 Arrival Date: 01/27/2023 Time: 16:22 Bed 11 Private MD: ED Physician David Flores HPI: 01/27 16:31 This 27 yrs old Female presents to ER via Unassigned with complaints of Abdominal Pain, kb 7 weeks , Sent by OB for ultrasound. 16:32 Patient is a 27-year-old female who presents for left lower abdominal pain that started kb 1 week ago. States she is 7 weeks and 2 days . G5, P2, A2. Had an appointment with her OB today and was told to come to the ER for an ultrasound to rule out ectopic . Patient denies any vaginal bleeding or discharge, fever.. 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 - Social history:: Smoking status: Patient denies any tobacco usage or history of. ROS: 16:31 Constitutional: Negative for fever, chills, and weight loss, kb 16:31 Abdomen/GI: Positive for abdominal pain, Negative for nausea, vomiting, and diarrhea, 16:31 Neuro: Positive for headache, 16:31 All other systems are negative, Exam: 16:31 Constitutional: This is a well developed, well nourished patient who is awake, alert, kb and in no acute distress. Head/Face: Normocephalic, atraumatic. ENT: Moist Mucous membranes Cardiovascular: Regular rate Respiratory: Respirations even and unlabored. No increased work of breathing. Talking in full sentences Skin: Warm, dry with normal turgor. Normal color. MS/ Extremity: Pulses equal, no cyanosis. Neurovascular intact. Full, normal range of motion. Neuro: Awake and alert, GCS 15, oriented to person, place, time, and situation. Moves all extremities. Normal gait. 16:31 Abdomen/GI: Inspection: abdomen appears normal, Bowel sounds: normal, Palpation: soft, in all quadrants, moderate abdominal tenderness, in the left lower quadrant, Vital Signs: 16:28 BP 138 / 73; Pulse 82; Resp 16; Temp 97.3; Pulse Ox 100% on R/A; Weight 82.55 kg; tl4 Height 5 ft. 3 in. ; Pain 5/10; 18:01 BP 112 / 66; Pulse 80; Resp 18; Pulse Ox 100% on R/A; me1 18:50 BP 116 / 84; Pulse 77; Resp 18; Pulse Ox 100% on R/A; me1 16:28 Body Mass Index 32.24 (82.55 kg, 160.02 cm) tl4 16:28 Pain Scale: Adult tl4 MDM: 16:26 Patient medically screened. kb 16:32 Differential diagnosis: threatened Ab, ectopic , uti. Data reviewed: vital kb signs, nurses notes. 01/27 16:29 Order name: Abo/rh Typing; Complete Time: 17:17 kb 01/27 16:29 Order name: Basic Metabolic Panel; Complete Time: 17:34 kb 01/27 16:29 Order name: CBC with Diff; Complete Time: 17:07 kb 01/27 16:29 Order name: Test, Urine; Complete Time: 16:58 kb 01/27 16:29 Order name: Quantitative Hcg; Complete Time: 17:34 kb 01/27 16:29 Order name: Urinalysis w/ reflexes; Complete Time: 16:58 kb 01/27 17:00 Order name: Urine Culture EDMS 01/27 16:29 Order name: US Transvaginal Ob; Complete Time: 18:33 kb 01/27 16:29 Order name: IV Saline Lock; Complete Time: 16:40 kb 01/27 16:29 Order name: Labs collected and sent; Complete Time: 16:40 kb 01/27 16:29 Order name: NPO; Complete Time: 16:35 kb Administered Medications: No medications were administered Disposition: 19:12 Co-signature as Attending Physician, David Flores MD I reviewed the patient's care rn provided by the Advanced Practice Provider and agree with the diagnosis and treatment plan. Disposition Summary: 01/27/23 18:34 Discharge Ordered Notes: Location: Home kb Condition: Stable kb Diagnosis - Less than 8 weeks gestation of kb Followup: kb - With: Emergency Department - When: As needed - Reason: Worsening of condition Followup: kb - With: Private Physician - When: 2 - 3 days - Reason: Recheck today's complaints, Continuance of care, Re-evaluation by your physician Discharge Instructions: - Discharge Summary Sheet kb - Abdominal Pain During kb - First Trimester of , Qtby-bi-Iyrt kb Forms: - Medication Reconciliation Form kb - Thank You Letter kb - Antibiotic Education kb - Prescription Opioid Use kb - Patient Portal Instructions kb - Leadership Thank You Letter kb Signatures: Dispatcher [employer] EDEmilia Small, LEGAL CONTRACTS SPECIALIST-C LEGAL CONTRACTS SPECIALIST-David Acharya MD MD rn Ceferino Bedoya tl4
[2023-01-27 19:46] VITALS: TEMP 97.3; O2SAT 100
[2023-01-27 19:48] VITALS: BP 116/84
== END 2023-01-27 18:52 | disposition home or self-care (01) ==
LOC: ER 16:22
DX: O26.891 Other specified pregnancy related conditions, first trimester (principal); Z3A.01 Less than 8 weeks gestation of pregnancy
CPT/HCPCS: 36415; 76817; 80048; 81001; 81025; 84702; 85025; 86900; 86901; 87086; 87088; 99283